=== PATIENT | female | born 1955 | race Caucasian/White ===

== ENCOUNTER 2016-11-17 08:00 | Outpatient (CLI) | payer BC, MEDICAID | END 2016-11-17 23:59 | disposition home or self-care (01) | DX: E78.2 Mixed hyperlipidemia (principal) ==

== ENCOUNTER 2017-11-16 10:53 | Outpatient (CLI) | payer BC, MEDICAID ==
[2017-11-16 13:40] LABS: HB2 TOTAL 14.5 g/dL; HEMOGLOBIN A1C 0.73 g/dL; HEMOGLOBIN A1C % 6.8 % (4.6-6.2)
== END 2017-11-16 10:54 | disposition home or self-care (01) ==
LOC: LAB.N 10:53
PROVIDERS: ATTEND Nurse Practitioner Gerontology
DX: E11.9 Type 2 diabetes mellitus without complications (principal)
CPT/HCPCS: 36415; 83036

== ENCOUNTER 2018-01-23 08:00 | Outpatient (CLI) | payer MEDICAID ==
[2018-01-23 12:56] LABS: BASOPHILS # (AUTO) 0.1 10^3/uL (0.0-0.1); BASOPHILS % (AUTO) 0.9 %; EOSINOPHILS # (AUTO) 0.5 10^3/uL (0.0-0.7); EOSINOPHILS % (AUTO) 5.7 %; HGB - HEMOGLOBIN 13.5 g/dL (12.0-16.0); LYMPHOCYTES # (AUTO) 2.4 10^3/uL (1.5-3.5); LYMPHOCYTES % (AUTO) 27.9 %; MEAN CORPUSCULAR HEMOGLOBIN 29.4 pg (27.0-31.0); MEAN CORPUSCULAR HGB CONC 33.6 g/dL (32.0-36.0); MEAN CORPUSCULAR VOLUME 87.6 fL (81.0-99.0); MEAN PLATELET VOLUME 7.5 fL (7.9-10.8); MONOCYTES # (AUTO) 0.4 10^3/uL (0.0-1.0); MONOCYTES % (AUTO) 5.3 %; NEUTROPHILS # (AUTO) 5.1 10^3/uL (1.5-6.6); NEUTROPHILS % (AUTO) 60.2 %; PLT - PLATELET COUNT 328 10^3/uL (130-450); RED BLOOD COUNT 4.58 10^6/uL (4.20-5.40); RED CELL DISTRIBUTION WIDTH 14.3 % (12.0-15.0); WHITE BLOOD COUNT 8.4 x10^3/uL (4.8-10.8)
[2018-01-23 13:02] LABS: ALBUMIN 4.1 g/dL (3.2-5.5); ALBUMIN/GLOBULIN RATIO 1.2 (1.0-2.2); ALKALINE PHOSPHATASE 106 IU/L (42-121); ALT ALANINE AMINOTRANSFERASE 24 IU/L (10-60); AST ASPARTATE AMINOTRANSFERASE 25 IU/L (10-42); BILIRUBIN,TOTAL 0.6 mg/dL (0.2-1.0); BUN - BLOOD UREA NITROGEN 21 mg/dL (6-20); CALCIUM 9.8 mg/dL (8.5-10.3); CARBON DIOXIDE - CO2 27 mmol/L (21-32); CHLORIDE 102 mmol/L (101-111); CHOL/HDL RATIO 3.5 (<4.4); CHOLESTEROL 159 mg/dL; CREATININE 0.9 mg/dL (0.4-1.0); GFR - MDRD 64 (>89); GLUCOSE 125 mg/dL (70-100); HDL CHOLESTEROL 46 mg/dL; LDL CHOLESTEROL,CALCULATED 93 mg/dL; SODIUM 138 mmol/L (135-145); TOTAL PROTEIN 7.4 g/dL (6.7-8.2); VLDL CHOLESTEROL 20 mg/dL
== END 2018-01-23 08:01 | disposition home or self-care (01) ==
LOC: LAB.N 08:00
PROVIDERS: ATTEND Nurse Practitioner Gerontology
DX: E11.9 Type 2 diabetes mellitus without complications (principal); I10 Essential (primary) hypertension; E78.2 Mixed hyperlipidemia
CPT/HCPCS: 36415; 80053; 80061; 83721; 85025

== ENCOUNTER 2019-01-27 08:00 | Outpatient (CLI) | payer MEDICAID, OTHER ==
[2019-01-27 12:43] LABS: BASOPHILS # (AUTO) 0.1 10^3/uL (0.0-0.1); BASOPHILS % (AUTO) 1.7 %; EOSINOPHILS # (AUTO) 0.6 10^3/uL (0.0-0.7); EOSINOPHILS % (AUTO) 7.6 %; HGB - HEMOGLOBIN 13.3 g/dL (12.0-16.0); LYMPHOCYTES # (AUTO) 2.2 10^3/uL (1.5-3.5); LYMPHOCYTES % (AUTO) 25.7 %; MEAN CORPUSCULAR HEMOGLOBIN 28.8 pg (27.0-31.0); MEAN CORPUSCULAR HGB CONC 33.1 g/dL (32.0-36.0); MEAN CORPUSCULAR VOLUME 86.8 fL (81.0-99.0); MEAN PLATELET VOLUME 7.3 fL (7.9-10.8); MONOCYTES # (AUTO) 0.3 10^3/uL (0.0-1.0); NEUTROPHILS # (AUTO) 5.2 10^3/uL (1.5-6.6); PLT - PLATELET COUNT 459 10^3/uL (130-450); RED BLOOD COUNT 4.62 10^6/uL (4.20-5.40); RED CELL DISTRIBUTION WIDTH 14.4 % (12.0-15.0); WHITE BLOOD COUNT 8.5 x10^3/uL (4.8-10.8)
[2019-01-27 12:51] LABS: ALBUMIN 4.1 g/dL (3.2-5.5); ALBUMIN/GLOBULIN RATIO 1.2 (1.0-2.2); ALKALINE PHOSPHATASE 120 IU/L (42-121); ALT ALANINE AMINOTRANSFERASE 30 IU/L (10-60); AST ASPARTATE AMINOTRANSFERASE 26 IU/L (10-42); BILIRUBIN,TOTAL 0.6 mg/dL (0.2-1.0); BUN - BLOOD UREA NITROGEN 19 mg/dL (6-20); CALCIUM 9.3 mg/dL (8.5-10.3); CARBON DIOXIDE - CO2 27 mmol/L (21-32); CHLORIDE 101 mmol/L (101-111); CHOL/HDL RATIO 5.1 (<4.4); CHOLESTEROL 241 mg/dL; CREATININE 0.8 mg/dL (0.4-1.0); GFR - MDRD 73 (>89); GLUCOSE 143 mg/dL (70-100); HDL CHOLESTEROL 47 mg/dL; LDL CHOLESTEROL,CALCULATED 156 mg/dL; LDL/HDL RATIO 3.3 (<4.4); SODIUM 139 mmol/L (135-145); TOTAL PROTEIN 7.5 g/dL (6.7-8.2); VLDL CHOLESTEROL 38 mg/dL
[2019-01-27 13:44] LABS: HEMOGLOBIN A1C 0.79 g/dL; HEMOGLOBIN A1C % 7.3 % (4.6-6.2)
== END 2019-01-27 23:59 | disposition home or self-care (01) ==
LOC: LAB.N 08:00
PROVIDERS: ATTEND Nurse Practitioner Gerontology
DX: E78.2 Mixed hyperlipidemia (principal); E11.9 Type 2 diabetes mellitus without complications; I10 Essential (primary) hypertension
CPT/HCPCS: 36415; 80053; 80061; 83036; 83721; 85025

== ENCOUNTER 2019-11-17 07:38 | Outpatient (CLI) | payer OTHER ==
[2019-11-17 12:53] LABS: BUN - BLOOD UREA NITROGEN 18 mg/dL (6-20); CARBON DIOXIDE - CO2 28 mmol/L (21-32); CHLORIDE 100 mmol/L (101-111); CHOL/HDL RATIO 5.8 (<4.4); CHOLESTEROL 266 mg/dL; CREATININE 0.8 mg/dL (0.4-1.0); GFR - MDRD 73 (>89); GLUCOSE 151 mg/dL (70-100); HDL CHOLESTEROL 46 mg/dL; LDL CHOLESTEROL,CALCULATED 182 mg/dL; SODIUM 136 mmol/L (135-145); VLDL CHOLESTEROL 38 mg/dL
== END 2019-11-17 23:59 | disposition home or self-care (01) ==
LOC: LAB.N 07:38
PROVIDERS: ATTEND Nurse Practitioner Gerontology
DX: I10 Essential (primary) hypertension (principal); E78.2 Mixed hyperlipidemia; E11.9 Type 2 diabetes mellitus without complications
CPT/HCPCS: 36415; 80048; 80061; 83721

== ENCOUNTER 2020-10-25 07:31 | Outpatient (CLI) | payer OTHER ==
[2020-10-25 12:12] LABS: HEMOGLOBIN A1c% 7.8 % (4.27-6.07)
[2020-10-25 12:19] LABS: ALBUMIN/GLOBULIN RATIO 1.2 (1.0-2.2); BILIRUBIN,TOTAL 0.5 mg/dL (0.2-1.0); CALCIUM 9.8 mg/dL (8.5-10.3); CREATININE 0.9 mg/dL (0.4-1.0); TOTAL PROTEIN 7.4 g/dL (6.7-8.2)
== END 2020-10-25 07:32 | disposition home or self-care (01) ==
LOC: LAB.N 07:31
PROVIDERS: ATTEND Internal Medicine
DX: E11.9 Type 2 diabetes mellitus without complications (principal)
CPT/HCPCS: 36415; 80053; 83036

== ENCOUNTER 2021-02-07 09:20 | Outpatient (CLI) | payer OTHER ==
[2021-02-07 13:42] LABS: BASOPHILS # (AUTO) 0.1 10^3/uL (0.0-0.1); BASOPHILS % (AUTO) 0.9 %; EOSINOPHILS # (AUTO) 0.5 10^3/uL (0.0-0.7); HCT - HEMATOCRIT 42.7 % (37.0-47.0); HGB - HEMOGLOBIN 13.7 g/dL (12.0-16.0); LYMPHOCYTES # (AUTO) 2.7 10^3/uL (1.5-3.5); LYMPHOCYTES % (AUTO) 28.9 %; MEAN CORPUSCULAR HEMOGLOBIN 28.5 pg (27.0-31.0); MEAN CORPUSCULAR HGB CONC 32.1 g/dL (32.0-36.0); MEAN PLATELET VOLUME 9.7 fL (7.9-10.8); MONOCYTES # (AUTO) 0.5 10^3/uL (0.0-1.0); MONOCYTES % (AUTO) 5.8 %; NEUTROPHILS # (AUTO) 5.5 10^3/uL (1.5-6.6); NEUTROPHILS % (AUTO) 59.1 %; PLT - PLATELET COUNT 390 10^3/uL (130-450); RED CELL DISTRIBUTION WIDTH 13.8 % (12.0-15.0); WHITE BLOOD COUNT 9.3 x10^3/uL (4.8-10.8)
[2021-02-07 13:50] LABS: ESTIMATED AVERAGE GLUCOSE 148 mg/dL (70-100); HEMOGLOBIN A1c% 6.8 % (4.27-6.07)
[2021-02-07 14:10] LABS: ALBUMIN 4.6 g/dL (3.2-5.5); ALBUMIN/GLOBULIN RATIO 1.4 (1.0-2.2); ALKALINE PHOSPHATASE 82 IU/L (42-121); ALT ALANINE AMINOTRANSFERASE 18 IU/L (10-60); AST ASPARTATE AMINOTRANSFERASE 17 IU/L (10-42); BILIRUBIN,TOTAL 0.6 mg/dL (0.2-1.0); BUN - BLOOD UREA NITROGEN 19 mg/dL (6-20); CALCIUM 9.9 mg/dL (8.5-10.3); CARBON DIOXIDE - CO2 27 mmol/L (21-32); CHLORIDE 100 mmol/L (101-111); CHOL/HDL RATIO 3.5 (<4.4); CHOLESTEROL 180 mg/dL; CREATININE 0.9 mg/dL (0.4-1.0); GFR - MDRD 63 (>89); GLUCOSE 147 mg/dL (70-100); HDL CHOLESTEROL 51 mg/dL; LDL CHOLESTEROL,CALCULATED 105 mg/dL; LDL/HDL RATIO 2.1 (<4.4); POTASSIUM 4.4 mmol/L (3.5-5.0); SODIUM 139 mmol/L (135-145); TOTAL PROTEIN 7.8 g/dL (6.7-8.2); TRIGLYCERIDES 120 mg/dL; VLDL CHOLESTEROL 24 mg/dL
== END 2021-02-07 09:21 | disposition home or self-care (01) ==
LOC: LAB.N 09:20
PROVIDERS: ATTEND Internal Medicine
DX: I10 Essential (primary) hypertension (principal); E11.9 Type 2 diabetes mellitus without complications
CPT/HCPCS: 36415; 80053; 80061; 83036; 83721; 85025

== ENCOUNTER 2021-02-20 10:11 | Outpatient (CLI) | payer OTHER ==
--- NOTE | 2021-02-20 11:00 | XRAY Report ---
PROCEDURE: Hip w/Pelvis 2-3V RT INDICATIONS: RIGHT HIP JOINT PAIN TECHNIQUE: AP pelvis with lateral view(s) of the bilateral hip(s). COMPARISON: None. FINDINGS: Bones: No fractures or dislocations, but there is severe hip joint degeneration bilaterally, with re modeling and erosion of the upper aspect of the femoral heads bilaterally, slightly greater on the ri ght than the left.. Pelvic ring appears intact. No suspicious bony lesions. Soft tissues: The visualized bowel gas pattern is normal. No suspicious soft tissue calcifications. IMPRESSION: The degenerative changes at the hips bilaterally appear long-standing and severe. There is remodeling of the upper third of the femoral heads, to a greater degree on the right than the left , and degenerative osteoarthritis as a primary etiology of this appearance is possible. Old avascular necrosis with secondary subsequent degenerative changes also could occur and produce this appearance . Reviewed by: Justino Mas MD on 02/20/2021 10:58 AM PDT Approved by: Justino Mas MD on 02/20/2021 10:58 AM PDT Station ID: [id number]
== END 2021-02-20 10:12 | disposition home or self-care (01) ==
LOC: DI 10:11
PROVIDERS: ATTEND Internal Medicine
DX: M25.551 Pain in right hip (principal); M16.0 Bilateral primary osteoarthritis of hip

== ENCOUNTER 2021-03-31 07:28 | Outpatient (CLI) | payer OTHER ==
[2021-03-31 11:53] LABS: BASOPHILS # (AUTO) 0.1 10^3/uL (0.0-0.1); BASOPHILS % (AUTO) 0.6 %; EOSINOPHILS # (AUTO) 0.5 10^3/uL (0.0-0.7); EOSINOPHILS % (AUTO) 5.7 %; HCT - HEMATOCRIT 43.7 % (37.0-47.0); HGB - HEMOGLOBIN 13.8 g/dL (12.0-16.0); LYMPHOCYTES # (AUTO) 2.4 10^3/uL (1.5-3.5); LYMPHOCYTES % (AUTO) 27.7 %; MEAN CORPUSCULAR HEMOGLOBIN 28.4 pg (27.0-31.0); MEAN CORPUSCULAR HGB CONC 31.6 g/dL (32.0-36.0); MEAN CORPUSCULAR VOLUME 89.9 fL (81.0-99.0); MEAN PLATELET VOLUME 9.6 fL (7.9-10.8); MONOCYTES # (AUTO) 0.5 10^3/uL (0.0-1.0); MONOCYTES % (AUTO) 5.6 %; NEUTROPHILS # (AUTO) 5.2 10^3/uL (1.5-6.6); NEUTROPHILS % (AUTO) 60.1 %; PLT - PLATELET COUNT 413 10^3/uL (130-450); RED BLOOD COUNT 4.86 10^6/uL (4.20-5.40); RED CELL DISTRIBUTION WIDTH 14.3 % (12.0-15.0); WHITE BLOOD COUNT 8.6 x10^3/uL (4.8-10.8)
[2021-03-31 12:11] LABS: ALBUMIN 4.7 g/dL (3.2-5.5); ALBUMIN/GLOBULIN RATIO 1.4 (1.0-2.2); BILIRUBIN,TOTAL 0.7 mg/dL (0.2-1.0); CREATININE 0.9 mg/dL (0.4-1.0); POTASSIUM 4.1 mmol/L (3.5-5.0)
[2021-03-31 12:28] LABS: THYROID STIMULATING HORMONE 3.69 uIU/mL (0.34-5.60)
[2021-03-31 12:38] LABS: ESTIMATED AVERAGE GLUCOSE 151 mg/dL (70-100); HEMOGLOBIN A1c% 6.9 % (4.27-6.07)
== END 2021-03-31 07:29 | disposition home or self-care (01) ==
LOC: LAB.N 07:28
PROVIDERS: ATTEND Internal Medicine
DX: I10 Essential (primary) hypertension (principal); E11.9 Type 2 diabetes mellitus without complications; E01.0 Iodine-deficiency related diffuse (endemic) goiter
CPT/HCPCS: 36415; 80053; 83036; 84443; 85025

== ENCOUNTER 2021-05-04 06:14 | Day surgery (SDC) | payer OTHER ==
[2021-05-04] MEDS ORDERED: ACETAMINOPHEN 500 MG TABLET PO ONE (06:18)
[2021-05-04] MEDS ORDERED: CELECOXIB 100 MG CAPSULE PO ONE (06:18)
[2021-05-04] MEDS ORDERED: DEXAMETHASONE 10 MG/ML VIAL ONE (06:19)
[2021-05-04] MEDS ORDERED: ceFAZolin 2 GM/50 ML 2 GM/50 ML BAG IV ONE (06:19)
[2021-05-04] MEDS ORDERED: MIDAZOLAM 2 MG/2 ML VIAL ONE (06:58)
[2021-05-04] MEDS ORDERED: fentaNYL 100 MCG/2 ML VIAL ONE (06:58)
[2021-05-04] MEDS ORDERED: VANCOMYCIN 1 GM VIAL ONE (06:59)
[2021-05-04] MEDS ORDERED: PROPOFOL 1000 MG/100 ML 1,000 MG/100 ML BOTTLE IV ONE (07:05)
[2021-05-04] MEDS ORDERED: PHENYLEPHRINE 10 MG/ML VIAL ONE (07:06)
[2021-05-04] MEDS ORDERED: SODIUM CHLORIDE FLUSH 0.9% 10 ML SYRINGE IVP PRN (07:08)
[2021-05-04] MEDS ORDERED: DOCUSATE SODIUM 100 MG CAPSULE PO PRN (07:08)
[2021-05-04] MEDS ORDERED: ONDANSETRON 4 MG/2 ML VIAL IVP PRN ×2 (07:08→07:18)
[2021-05-04] MEDS ORDERED: BUPIVACAINE 0.5% PF 10 ML VIAL ONE (07:13)
[2021-05-04] MEDS ORDERED: ePHEDrine 50 MG/ML VIAL IVP PRN (07:18)
[2021-05-04] MEDS ORDERED: MORPHINE 2 MG/ML CARPUJECT IVP PRN (07:18)
[2021-05-04] MEDS ORDERED: ATROPINE ABBOJECT 1 MG/10 ML SYRINGE IVP PRN (07:18)
[2021-05-04] MEDS ORDERED: HYDROmorphone 0.5 MG/0.5 ML SYRINGE IVP PRN (07:18)
[2021-05-04] MEDS ORDERED: fentaNYL 100 MCG/2 ML VIAL IVP PRN (07:18)
[2021-05-04] MEDS ORDERED: METOCLOPRAMIDE 10 MG/2 ML VIAL IVP PRN (07:18)
[2021-05-04] MEDS ORDERED: NALOXONE 0.4 MG/ML VIAL IVP PRN (07:18)
--- NOTE | 2021-05-04 07:18 | ANESTHESIA ---
Pre-Anesthesia VS, & Labs - Diagnosis right hip osteoarthritis - Procedure right hip total arthroplasty Vital Signs: Temp Pulse Resp BP Pulse Ox 37.2 C 87 18 140/82 H 100 05/04/21 06:30 05/04/21 06:30 05/04/21 06:30 05/04/21 06:30 05/04/21 06:30 Height: 5 ft 5 in Weight (kg): 104.8 kg Body Mass Index: 38.4 BMI Classification: Obese - NPO >8 hours - Is Patient ?: No - Lab Results Current Lab Results: Laboratory Tests 05/04/21 06:51: POC Whole Bld Glucose 112 H Lab results reviewed: Yes Home Medications and Allergies Home Medications: Ambulatory Orders Amlodipine Besylate [Norvasc] 10 mg PO DAILY 05/02/21 Calcium Carbonate [Tums (Calcium Carbonate 500mg)] 3 tab PO QPM 05/02/21 Cholecalciferol (Vitamin D3) [Vitamin D3] 1,000 unit PO DAILY 05/02/21 Cyanocobalamin (Vitamin B-12) [Vitamin B-12] 1,000 mcg PO BID 05/02/21 Ibuprofen [Motrin] 400 mg PO BID 05/02/21 Losartan Potassium [Cozaar] 100 mg PO DAILY 05/02/21 Simvastatin [Zocor] 10 mg PO QPM 05/02/21 flaxseed oiL [Flaxseed Oil] 1,000 mg PO BID 05/02/21 hydroCHLOROthiazide [Hydrodiuril] 25 mg PO DAILY 05/02/21 metFORMIN [Glucophage] 1,000 mg PO BIDWM 05/02/21 Amlodipine Besylate [Norvasc] 10 mg PO DAILY 05/02/21 Calcium Carbonate [Tums (Calcium Carbonate 500mg)] 3 tab PO QPM 05/02/21 Cholecalciferol (Vitamin D3) [Vitamin D3] 1,000 unit PO DAILY 05/02/21 Cyanocobalamin (Vitamin B-12) [Vitamin B-12] 1,000 mcg PO BID 05/02/21 Ibuprofen [Motrin] 400 mg PO BID 05/02/21 Losartan Potassium [Cozaar] 100 mg PO DAILY 05/02/21 Simvastatin [Zocor] 10 mg PO QPM 05/02/21 flaxseed oiL [Flaxseed Oil] 1,000 mg PO BID 05/02/21 hydroCHLOROthiazide [Hydrodiuril] 25 mg PO DAILY 05/02/21 metFORMIN [Glucophage] 1,000 mg PO BIDWM 05/02/21 Allergies/Adverse Reactions: Allergies Allergy/AdvReac Type Severity Reaction Status Date / Time adhesive tape Allergy Rash Verified 05/02/21 12:14 lisinopril Allergy angioedema Verified 05/02/21 12:10 sitagliptin [From Januvia] Allergy severe Verified 05/02/21 12:10 joint pain atorvastatin [From Lipitor] AdvReac muscle Verified 05/02/21 12:10 cramps Anes History & Medical History - Anesthetic History Anesthesia Complications: reports: No previous complications Family history of Anesthesia Complications: Denies Family history of Malignant Hyperthermia: Denies - Medical History Cardiovascular: reports: Hypertension, High cholesterol Gastrointestinal: reports: GERD Urinary: reports: None Musculoskeletal: reports: Osteoarthritis Endocrine/Autoimmune: reports: Type 2 diabetes Skin: reports: Eczema - Surgical History General: reports: Colonoscopy Exam General: Alert, Oriented x3, Cooperative, No acute distress Dental: WNL Mouth Openin Fingerbreadth Neck Mobility: Normal Mallampati classification: II Respiratory: Lungs clear, Normal breath sounds, No respiratory distress, No accessory muscle use Cardiovascular: Regular rate, Normal S1, Normal S2, No murmurs Plan Anesthesia Type: General (backup), Spinal, Fascia Iliaca Block Consent for Procedure(s) Verified and Reviewed: Yes Code Status: Attempt Resuscitation ASA classification: 3-Severe systemic disease Is this case an emergency?: No
[2021-05-04] MEDS ORDERED: LACTATED RINGERS 1,000 ML IV SCH (08:00)
[2021-05-04] MEDS ORDERED: ePHEDrine 50 MG/ML VIAL IVP ONE (08:04)
[2021-05-04] MEDS ORDERED: TRANEXAMIC ACID 1,000 MG/10 ML VIAL ONE ×2 (08:13→10:32)
[2021-05-04] MEDS ORDERED: BUPIVACAINE 0.25% PF 30 ML VIAL ONE (08:23)
[2021-05-04] MEDS ORDERED: VANCOMYCIN 1 GM VIAL MC ONE ×2 (08:30→10:00)
[2021-05-04] MEDS ORDERED: BUPIVACAINE 0.25% PF 30 ML VIAL SUBQ ONE ×3 (08:30→10:43)
[2021-05-04] MEDS ORDERED: PROPOFOL 200 MG/20 ML VIAL IVP ONE ×2 (09:40→10:42)
[2021-05-04] MEDS ORDERED: ROPIVACAINE 0.5% PF 20 ML AMPULE ONE (10:02)
--- NOTE | 2021-05-04 10:54 | OPERATIVE REPORT ---
Operative Report - General Procedure Date: 05/04/21 Planned Procedure: Right total hip replacement Pre-Op Diagnosis: Severe osteoarthritis right hip with flexion contracture Procedure Performed: Right total hip replacement with Barrera [employer] Nephew total hip system: #7 high offset anthology, 36 mm Oxinium femoral head, +12 mm, 52 mm press-fit acetabular component with neutral polyethylene acetabular liner Post Op Diagnosis: Same as preop diagnosis - Procedure Note Primary Surgeon: Earle Daniels MD Secondary Surgeon: Vinicius LEONE Anesthesia Provider: John Lynch CRNA Anesthesia Technique: Spinal Estimated Blood Loss (mL): 150 Indications: This is a 65-year-old woman with severe bilateral hip osteoarthritis with bilateral hip flexion contractures leading to marked gait difficulties. She has history of obesity and diabetes. She had approximately 30 to 40 degree flexion contractures bilaterally, stooped gait, marked pain and limited motion to both hips. X-ray showed advanced changes to both hips with complete loss of joint space. There was marked osteophytes about the acetabulum, some superior erosion of the acetabulum and some superior subluxation of the femoral head right hip Findings: Complete loss of articular cartilage to both femur and acetabulum. There was deformity of both femoral head and acetabulum. There was marked osteophytes about the acetabulum circumferentially. Complications: None - Other Other Information/Narrative: After satisfactory spinal anesthesia had been achieved, the patient was placed in a lateral decubitus position with the right hip facing superiorly. She was secured in the lateral decubitus position using a pegboard with 2 post securing the torso and 2 posts securing the pelvis. The right hip and right lower extremity were prepped and draped in a sterile manner in the usual fashion. A timeout procedure was performed by the entire operating room team and all were in agreement. A longitudinal incision was made about the lateral right hip beginning at the vastus lateralis ridge of the proximal femur and extending it proximally approximately 3 fingerbreadths above the trochanter. The sub cutaneous tissue and fascia yasmeen were split in line with the incision. The anterior one third of the gluteus medius was incised at the myotendinous junction. The gluteus medius was retracted medially. The hip capsule was exposed and was split in a T-shaped fashion. Part of the anterior hip capsule was excised. The femoral head was dislocated with flexion, adduction and external rotation. An osteotomy was done to the femoral neck using a osteotomy guide. Retractors were placed behind the femoral neck to protect the soft tissues from the oscillating saw. The proximal femur was retracted. 2 acetabular retractors were placed one anteriorly directly against bone to reduce any soft tissue impingement to femoral nerve. The second retractor was placed more posteriorly directly against bone and preventing any impingement against sciatic nerve. The acetabulum was prepared with a large curette. Medialization of the acetabulum was performed with a small acetabular reamer and then widening was done up to a 53 mm reamer the final reamers were placed in approximately 20 degrees anteversion and 45 degrees of abduction. A trial acetabular component was inserted, 52 mm and this fit well. A permanent 52 mm R3 acetabular 3-hole component was then impacted in 40 degrees of abduction and approximately 20 degrees of anteversion. This had good fixation to push pull and rotation. The stability of the acetabular cup was very good. A trial acetabular liner was inserted into the cup. The femoral canal was opened with a box osteotome, starting reamer and then a short broach. Broaching was carried out to a #7. Calcar reaming was performed. Good fit and stability to the #4 stem was achieved. Trial reduction was performed. Hip motion was very good and the hip was stable to dislocation maneuvers. The trial components were removed. A permanent acetabular liner was impacted into the acetabular cup. The #7 Anthology femoral stem was impacted and fully seated. The femoral head was impacted on the femoral trunnion. There was good stability to push pull and rotation. A 36 mm + 12head with high offset was impacted on the trunnion. The hip was reduced, had good leg length tension and good stability with dislocation maneuvers. 3-minute lavage with dilute Betadine was performed. Vancomycin powder, 2 g was added prior to deep closure. The hip abductors were repaired at the myotendinous junction with #1 Stratofix. The fascia yasmeen was closed with #1 stratofix. The subcutaneous tissue was closed with 2-0 stratofix. The skin was closed with a 3-0 Monocryl subcuticular closure and Dermabond. He tolerated the procedure well. A physician assistant hall director was utilized during the procedure to provide retraction and protection of neurovascular structures as well as to facilitate dislocation and reduction of the hip joint.The acetabulum fit very well, press-fit without need for screw fixation. There were large osteophytes about the acetabulum that had to be removed with an osteotome. There was some tendency for dislocation of the hip with external rotation and adduction because of impingement posteriorly. This was markedly improved using a longer neck length, high offset and removing the posterior acetabular osteophyte. The hip had good leg length tension and good stability after these changes were made.
[2021-05-04] MEDS ORDERED: LACTATED RINGERS 1,000 ML IV ONE ×2 (11:14→12:00)
[2021-05-04] MEDS ORDERED: LORazepam 2 MG/ML VIAL ONE (11:25)
[2021-05-04] MEDS ORDERED: LORazepam 2 MG/ML VIAL IVP ONE (12:00)
--- NOTE | 2021-05-04 12:15 | XRAY Report ---
PROCEDURE: right total hip arthroplasty. INDICATIONS: POSTOP RIGHT TOTAL HIP TECHNIQUE: Frontal single view(s) of the pelvis acquired. COMPARISON: Preoperative plain film pelvis with hip/ reviewed.. FINDINGS: Bones: No fractures or dislocations. Normal alignment after right total hip arthroplasty. No suspic ious bony lesions. Soft tissues: Visualized bowel gas pattern is normal. No suspicious soft tissue calcifications. IMPRESSION: Normal alignment established after right total hip arthroplasty. Reviewed by: Justino Mas MD on 05/04/2021 12:13 PM PDT Approved by: Justino Mas MD on 05/04/2021 12:13 PM PDT Station ID: [id number]
[2021-05-04] MEDS: CELECOXIB 100 MG CAPSULE PO SCH ×2 (12:23→20:11)
[2021-05-04] MEDS: NS W/20 MEQ KCL 1,000 ML IV SCH ×2 (12:30→21:46)
[2021-05-04] MEDS: SODIUM CHLORIDE FLUSH 0.9% 10 ML SYRINGE IVP SCH ×2 (12:30→17:08)
[2021-05-04] MEDS: ACETAMINOPHEN 500 MG TABLET PO SCH ×2 (12:33→17:08)
[2021-05-04] MEDS: ASPIRIN EC 81 MG TABLET PO SCH ×2 (12:33→20:11)
[2021-05-04] MEDS: ethyl alcohoL 62% SWAB AMPULE NAS SCH ×2 (12:34→20:11)
--- NOTE | 2021-05-04 13:29 | ANESTHESIA POST OP EVALUATION ---
Anesthesia Post Eval - Post Anesthesia Eval Vitals: Last Vital Signs Temp 36.7 C 05/04/21 12:58 Pulse 96 05/04/21 12:58 Resp 18 05/04/21 12:58 BP 132/65 H 05/04/21 12:58 Pulse Ox 94 05/04/21 12:58 CV Function Including HR & BP: Stable Pain Control: Satisfactory Nausea & Vomiting: Negative Mental Status: Baseline Respiratory Status: Airway Patent Hydration Status: Satisfactory Anesthesia Complications: None
--- NOTE | 2021-05-04 13:33 | CONSULTATION NOTE ---
Referring Provider Name of Referring Provider:: Dr. Earle Daniels Consult Date: 05/04/21 Chief Complaint - Chief Complaint Chief Complaint: requested by DR Daniels to consult on medical management post R THR History of Present Illness - Admitted From Admitted From:: [facility] - History Obtained From Records Reviewed: records History obtained from: patient and records - History of Present Illness HPI Comment/Other: Requested by Dr Daniels to consult on Ms Nguyen post R total hp replacment today She has had sevvere bilateral hip osteoarthritis, and documented hip flexion contractures bilaterally which affected gait severely. 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 2015 since daughter/ stationed here with grandkids. She is Day 0 s/p R total hip for osteoarthritis and contractures. EBL 150 Operatiave report notes no complications. Post anaestehsia note by ELIDIA Barrera w/ VS 36.7, HR 96, RR 18, 132/65, Sa02 94% PMH; - obesity BMI 38 -DM Type 2 Patient thinks last A1C ~ 6.8 - on metformin 1000 bid, and simvastatin 10 mg daily -Hypertension; on losartan 100 daily, amlodipine 10 daily , HCTZ ; held preop - bilat hip OA ; takes ibupfofen 400 q am, 600 q pm for pain - Restless leg syndrome B12 1000 bid (she found this recommended online) Denies CAD, pulmonary disease, other orthopedic, no renal disease She is fairly active, goes to the gym in [place] 3x / week, has grandkids she is involved with. No SOB or chest pain that limits activities. Exceeds 4 METS w/ daily activity. History - Past Medical History Cardiovascular: reports: Hypertension, High cholesterol Respiratory: reports: Asthma Endocrine/Autoimmune: reports: Type 2 diabetes (reports A1C ~ 6.8m metformin and diet control) : reports: None HEENT: reports: Chronic vision loss Psych: reports: None Musculoskeletal: reports: Osteoarthritis, Other (mild restless leg syndrome) Derm: reports: Eczema MRSA Hx?: No - Past Surgical History General: reports: Colonoscopy - Family & Social History Living arrangement: At home Living Situation: With spouse/s.o. Social History Notes: used to work in a [employer] [place] in [place] in [place], lives w/ , moved to [facility] 2016 as daughter was here / with grand kids on [employer] [place] - Substance History Use: Uses substance without health or social issues: Alcohol (occasional on holidays, no tobacco) Meds/Allgy - Home Medications Home Medications: Ambulatory Orders Medication Instructions Recorded Confirmed Amlodipine Besylate [Norvasc] 10 mg PO DAILY 05/02/21 05/02/21 Calcium Carbonate [Tums (Calcium 3 tab PO QPM 05/02/21 05/02/21 Carbonate 500mg)] Cholecalciferol (Vitamin D3) 1,000 unit PO DAILY 05/02/21 05/02/21 [Vitamin D3] Cyanocobalamin (Vitamin B-12) 1,000 mcg PO BID 05/02/21 05/02/21 [Vitamin B-12] Ibuprofen [Motrin] 400 mg PO BID 05/02/21 05/02/21 Losartan Potassium [Cozaar] 100 mg PO DAILY 05/02/21 05/02/21 Simvastatin [Zocor] 10 mg PO QPM 05/02/21 05/02/21 flaxseed oiL [Flaxseed Oil] 1,000 mg PO BID 05/02/21 05/02/21 hydroCHLOROthiazide [Hydrodiuril] 25 mg PO DAILY 05/02/21 05/02/21 metFORMIN [Glucophage] 1,000 mg PO BIDWM 05/02/21 05/02/21 Celecoxib [Celebrex] 200 mg PO DAILY #50 cap 05/05/21 - Allergies Allergies/Adverse Reactions: Allergies Allergy/AdvReac Type Severity Reaction Status Date / Time adhesive tape Allergy Rash Verified 05/02/21 12:14 lisinopril Allergy angioedema Verified 05/02/21 12:10 sitagliptin [From Januvia] Allergy severe Verified 05/02/21 12:10 joint pain atorvastatin [From Lipitor] AdvReac muscle Verified 05/02/21 12:10 cramps Review of Systems - Constitutional Constitutional: reports: Weight loss (intentional ~ 30 lbs (has helped her sugar)). denies: Fever, Chills - Eyes Eyes: denies: Vision loss, Dipolpia - Cardiovascular Cariovascular: denies: Palpitations, Chest pain, Edema - Respiratory Respiratory: denies: Cough, Wheezing, Orthopnea, SOB at rest, SOB with exertion - Gastrointestinal Gastrointestinal: denies: Constipation, Diarrhea, Change in bowel habits, Black stools, Nausea, Vomiting - Genitourinary Genitourinary: denies: Dysuria, Frequency, Urgency - Musculoskeletal Musculoskeletal: reports: Other (as per HPi) - Neurological Neurological: denies: Focal weakness, Headache - Psychiatric Psychiatric: reports: Other (no mood issues). denies: Depression - Endocrine Endocrine: denies: Polyuria, Polydypsia, Polyphagia - Hematologic/Lymphatic Hematologic/Lymphatic: denies: Anemia, Blood clots, Lymphadenopathy Exam - Vital Signs Reviewed Vital Signs: Yes Vital Signs: Vital Signs x48h Temp Pulse Resp BP Pulse Ox 05/04/21 12:58 36.7 C 96 18 132/65 H 94 05/04/21 12:43 36.7 C 89 18 129/93 H 96 05/04/21 12:30 35.6 C L 87 17 113/66 94 05/04/21 12:16 85 18 130/68 96 05/04/21 11:55 36.5 C 81 16 133/79 H 100 05/04/21 11:50 36.5 C 84 18 113/65 100 05/04/21 11:45 36.6 C 84 19 124/69 100 05/04/21 11:40 36.6 C 84 20 125/58 L 100 05/04/21 11:35 36.6 C 81 19 108/71 100 05/04/21 11:30 36.6 C 84 17 127/76 100 05/04/21 11:25 36.5 C 87 17 123/75 99 05/04/21 11:20 36.4 C L 95 18 138/82 H 100 05/04/21 11:15 36.6 C 99 20 121/70 99 05/04/21 06:30 37.2 C 87 18 140/82 H 100 - Physical Exam General Appearance: positive: No acute distress, Alert, Other (Pleasant heavy set woman looks younger than age of 65 lying in bed looking completely comfortable. alert, animated , provides good detail of health history) Eyes Bilateral: positive: Normal inspection, PERRL, EOMI ENT: positive: ENT inspection nml, Other (own teeth) Respiratory: positive: Chest non-tender, No respiratory distress, Breath sounds nml (auscultated anteriorly currently, breathing comfortably flat on RA, 98% sat) Cardiovascular: positive: Regular rate & rhythm, No murmur Abdomen: positive: Nml bowel sounds, No distention, Other (obese abdomen) Skin: positive: Warm, Dry. negative: Cyanosis Extremities: positive: Other (sCD's on bilaterally). negative: Pedal edema Neurologic/Psychiatric: positive: Oriented x3, Mood/affect nml Conclusion/Plan - Problem List (1) Status post total hip replacement, right Conclusion/Plan: Primary management with dressing change, mobiility orders, prophylactic ancef VTE prophylaxis (81 mg bid asa ), pain control per orthopedic surgery (2) Diabetes mellitus Conclusion/Plan: Well controlled DM on metformn Hold metformin in hospital can resume on d/c home, continue diet control (3) Obesity (BMI 30-39.9) Conclusion/Plan: with complication of bilateral osteoarthritis of hips (likely at least partly related to obesity continue efforts to lose weight as she has) (4) Hypertension Conclusion/Plan: controlled, no sequelae is on losartan, amlodipine at home which she did take this am Will continue tomorrow most likley if no hypotension will sukhjinder hold HCTZ til d/c (was held preop as well) (5) Hyperlipidemia Conclusion/Plan: on sivastatin at home; lovastatin here controlled, contiue - Lab Results Lab results reviewed: Yes
[2021-05-04] MEDS ORDERED: CEFAZOLIN SODIUM IN 0.9 % NACL 2 GM/100 ML BAG IV SCH (14:00)
[2021-05-04] MEDS ORDERED: ceFAZolin 2 GM in SODIUM CHLORIDE 0.9% 100ML 100 ML IV SCH (14:00)
[2021-05-04] MEDS: ceFAZolin 2 GM/50 ML 2 GM/50 ML BAG IV SCH ×2 (14:25→21:03)
[2021-05-04] MEDS: oxyCODONE 5 MG TABLET PO PRN ×2 (15:46→21:46)
[2021-05-04] MEDS: HYDROmorphone 1 MG/ML CARPUJECT IVP PRN ×2 (15:47→20:10)
[2021-05-04] MEDS: INSULIN ASPART 300 UNIT/3 ML PEN SUBQ SCH ×2 (17:08→21:06)
[2021-05-04] MEDS ORDERED: PRAVASTATIN 10 MG TABLET PO SCH (21:00)
[2021-05-05] MEDS: SODIUM CHLORIDE FLUSH 0.9% 10 ML SYRINGE IVP SCH ×2 (00:45→02:57)
[2021-05-05] MEDS: ACETAMINOPHEN 500 MG TABLET PO SCH ×2 (00:49→06:50)
[2021-05-05] MEDS: HYDROmorphone 1 MG/ML CARPUJECT IVP PRN (02:56)
[2021-05-05] MEDS: NS W/20 MEQ KCL 1,000 ML IV SCH (06:53)
--- NOTE | 2021-05-05 07:49 | PROVIDER PROGRESS NOTE ---
Subjective - General Procedure Date: 05/04/21 Post Op Days: 1 - Review of Systems Wound/Incisions: positive: Dressing dry and intact General: negative: Fever, Chills Cardiovascular: positive: No symptoms Gastrointestinal: positive: No symptoms. negative: Nausea, Vomiting Musculoskeletal: positive: Joint pain Skin: positive: No symptoms - Other Other Information/Narrative: Patient is a 65-year-old female with bilateral hip osteoarthritis who is postop day 1 right total hip arthroplasty performed by Dr Earle Daniels at [facility] on 05/04/2021. Patient's history includes DM 2 on Metformin, hypertension on HCTZ, amlodipine and losartan. Patient shows no signs or symptoms of infection. Her pain has been well controlled. Patient has been up to chair and up to commode. Objective - Patient Data Vital Signs: Vital Signs x48h Temp Pulse Resp BP Pulse Ox 05/05/21 07:41 37.6 C 88 18 114/59 L 98 05/05/21 04:59 36.8 C 89 19 118/57 L 97 05/04/21 23:56 36.9 C 97 21 124/60 97 Weight: Weight 05/03/21 05/04/21 05/05/21 23:59 23:59 23:59 Weight (kg) 104.8 kg Intake & Output: Intake and Output Totals x24h 05/03/21 05/04/21 05/05/21 23:59 23:59 23:59 Intake Total 2088.334 1361.667 Output Total 1050 575 Balance 1038.334 786.667 - Lab Results Other Lab Results: Lab Results x24hrs 05/05/21 05/04/21 05/04/21 Range/Units 07:33 20:59 16:41 POC Whole Bld Glucose 171 H 230 H 223 H (70 - 100) mg/dL 05/04/21 Range/Units 14:12 POC Whole Bld Glucose 202 H (70 - 100) mg/dL - Imaging Results Radiology Imaging: positive: EMP read indepedently (I have independently visualized radiographs of the AP pelvis taken postoperatively on 05/04/2021 that show no acute fractures dislocations with good anatomical alignment of expected appearance right BERNA, No apparent hardware loosening.) - Current Medications Current Medications: Current Medications Generic Name Dose Route Start Last Admin Trade Name Freq PRN Reason Stop Dose Admin Acetaminophen 1,000 mg 05/04/21 12:00 05/05/21 06:50 Acetaminophen 500 Mg Tablet PO 1,000 mg Q6HR KEILY Administration Alcohol 1 amp 05/04/21 09:00 05/04/21 20:11 Ethyl Alcohol 62% Swab Ampule HO 1 amp BID KEILY Administration Aspirin 81 mg 05/04/21 09:00 05/04/21 20:11 Aspirin Ec 81 Mg Tablet PO 81 mg BID KEILY Administration Celecoxib 200 mg 05/04/21 09:00 05/04/21 20:11 Celecoxib 100 Mg Capsule PO 200 mg BID KEILY Administration Hydromorphone HCl 1 mg 05/04/21 07:08 05/05/21 02:56 Hydromorphone 1 Mg/Ml Carpuject IVP 1 mg Q2HR PRN Administration Breakthrough Pain Potassium Chloride/Sodium Chloride 1,000 mls @ 100 mls/hr 05/04/21 08:00 05/05/21 06:53 Normal Saline 0.9% W/20 Meq Kcl IV 100 mls/hr .Q10H KEILY Administration Oxycodone HCl 5 mg 05/04/21 07:08 05/04/21 21:46 Oxycodone 5 Mg Tablet PO 5 mg Q6HR PRN Administration PAIN Pravastatin Sodium 10 mg 05/04/21 21:00 05/04/21 20:11 Pravastatin 10 Mg Tablet PO 10 mg QPM KEILY Administration Sodium Chloride 10 ml 05/04/21 09:00 05/05/21 02:57 Sodium Chloride Flush 0.9% 10 Ml Syringe IVP 10 ml 0100,0900,1700 KEILY Administration - Physical Exam General Appearance: positive: No acute distress Respiratory: positive: No respiratory distress Skin: positive: Color nml, No rash, Warm, Dry Extremities: positive: Other (Right hip and groin pain) Neurologic/Psychiatric: positive: Oriented x3 ABX Reporting Has patient been on IV antibiotics over the past 48 hours?: Yes Impression/Plan - Problem List Problem List: Patient is a 65-year-old female with a history including bilateral hip osteoarthritis DM 2, hypertension who is postop day [address] Earle Daniels at [facility] on 05/04/2021. Patient shows no signs or symptoms of infection, pain well controlled, is up to Chair and commode. Patient is weightbearing as tolerated in front wheeled walker. Providing successful completion of physical therapy sessions today patient can go home
--- NOTE | 2021-05-05 07:57 | Discharge Plan ---
Discharge Plan Problem Reviewed?: Yes Disposition: Home, Self Care Condition: Good Diet: Diabetic Activity Restrictions: Activity as Tolerated Shower Restrictions: Yes (Do not shower until initial postop visit) Driving Restrictions: Yes (Do not operate a motor vehicle until cleared by surgeon) Assistance Devices: Walker Weight Bearing: Other (As tolerated) Plan of Treatment: You have had a Right hip replacement or total hip arthroplasty for osteoarthritis. Your medications for pain management will include a new p rescription for Celebrex 200 mg once daily for inflammation sent to your pharmacy. Also take 650 mg of Tylenol every 4 hours up to 5 times in a 24-hour period. Take scheduled Tramadol 50 mg every 6 hours. Take oxycodone 5 mg Every 4-6 hours as needed for breakthrough pain. Take aspirin 81 mg 1 tablet in the a.m., 1 tablet in the p.m. for blood clot prevention. You can walk using a front wheeled walker as much as you can tolerate. The more walking you can do will accelerate proper bone healing after surgery. No Smoking: If you smoke, Please STOP! Call for help. Follow-up with: Chong Latham MD [Primary Care Provider] -
[2021-05-05] MEDS ORDERED: INSULIN ASPART 300 UNIT/3 ML PEN SUBQ SCH (08:00)
[2021-05-05] MEDS: CELECOXIB 100 MG CAPSULE PO SCH (08:04)
[2021-05-05] MEDS: ASPIRIN EC 81 MG TABLET PO SCH (08:04)
[2021-05-05] MEDS: ethyl alcohoL 62% SWAB AMPULE NAS SCH (08:05)
[2021-05-05] MEDS ORDERED: LOSARTAN 50 MG TABLET PO SCH (09:00)
[2021-05-05] MEDS: oxyCODONE 5 MG TABLET PO PRN (10:03)
[2021-05-05 11:22] VITALS: BP 110/57
== END 2021-05-05 11:30 | disposition home or self-care (01) ==
LOC: SDS 06:14 → MS2 12:07 → SDS 05-05 11:30
PROVIDERS: ATTEND Orthopaedic Surgery
PROC: 0SR902Z Replacement of Right Hip Joint with Metal on Polyethylene Synthetic Substitute, Open Approach (ICD-10-PCS; principal; 2021-05-04 07:30)
DX: M16.11 Unilateral primary osteoarthritis, right hip (principal); E66.9 Obesity, unspecified; Z68.38 Body mass index [BMI] 38.0-38.9, adult; I10 Essential (primary) hypertension; E78.00 Pure hypercholesterolemia, unspecified; E11.9 Type 2 diabetes mellitus without complications; Z79.84 Long term (current) use of oral hypoglycemic drugs; Z79.899 Other long term (current) drug therapy
CPT/HCPCS: 27130; 72170; 97116; 97161; 97165; 97530; A9270; C1713; C1776; J0690; J1170; J2060; J3370; J7120

== ENCOUNTER 2021-06-27 11:00 | Outpatient (CLI) | payer OTHER ==
--- NOTE | 2021-06-27 12:24 | XRAY Report ---
PROCEDURE: Hip w/Pelvis 2-3V RT INDICATIONS: HX OF RIGHT HIP REPLACEMENT, POSTOP CARE TECHNIQUE: AP pelvis with lateral view(s) of the right hip(s). COMPARISON: May 04, 2021 FINDINGS: BONES/JOINTS: No acute, displaced fracture. A right hip arthroplasty is again demonstrated without ev idence of hardware compromise. Advanced degenerative changes of the left hip with joint space loss, o steophytosis, remodeling, and sclerosis of the opposing articular surfaces. No widening of the pubic symphysis. The sacroiliac joints are symmetric. The femoral heads are normal ly seated within the acetabulum. SOFT TISSUES: No focal abnormality. IMPRESSION: 1.No significant abnormality. Reviewed by: Jeffery Plasencia MD on 06/27/2021 12:22 PM PDT Approved by: Jeffery Plasencia MD on 06/27/2021 12:22 PM PDT Station ID: [id number]
== END 2021-06-27 23:59 ==
LOC: DI.N 11:00
PROVIDERS: ATTEND Physician Assistant
DX: Z96.641 Presence of right artificial hip joint (principal)

== ENCOUNTER 2021-07-25 07:53 | Outpatient (CLI) | payer OTHER ==
[2021-07-25 12:21] LABS: ALBUMIN 4.2 g/dL (3.2-5.5); ALBUMIN/GLOBULIN RATIO 1.3 (1.0-2.2); BILIRUBIN,TOTAL 0.5 mg/dL (0.2-1.0); CALCIUM 10.1 mg/dL (8.5-10.3); CREATININE 0.9 mg/dL (0.4-1.0); TOTAL PROTEIN 7.4 g/dL (6.7-8.2)
[2021-07-25 12:50] LABS: ESTIMATED AVERAGE GLUCOSE 134 mg/dL (70-100); HEMOGLOBIN A1c% 6.3 % (4.27-6.07)
== END 2021-07-25 07:54 | disposition home or self-care (01) ==
LOC: LAB.N 07:53
PROVIDERS: ATTEND Internal Medicine
DX: E11.9 Type 2 diabetes mellitus without complications (principal)
CPT/HCPCS: 36415; 80053; 83036

== ENCOUNTER 2021-11-22 08:00 | Outpatient (CLI) | payer OTHER ==
--- NOTE | 2021-11-23 07:48 | XRAY Report ---
PROCEDURE: Hip 2 View LT INDICATIONS: HIP PAIN TECHNIQUE: 2 views of the hip were acquired. COMPARISON: None FINDINGS: Bones: No fractures or dislocations. No suspicious bony lesions. The visualized pelvic ring appear s intact. End-stage arthritic change of the left hip with symmetric joint space obliteration. Soft tissues: No suspicious soft tissue calcifications or masses. Incidental note made of the presen ce of calcified uterine fibroids. IMPRESSION: End-stage arthritic change of the left hip. Reviewed by: Juancarlos Flores MD on 11/23/2021 7:47 AM PDT Approved by: Juancarlos Flores MD on 11/23/2021 7:47 AM PDT Station ID: [id number]
== END 2021-11-22 23:59 ==
LOC: DI.WOS 08:00
PROVIDERS: ATTEND Orthopaedic Surgery
DX: M16.12 Unilateral primary osteoarthritis, left hip (principal)

== ENCOUNTER 2021-12-22 12:32 | Outpatient (CLI) | payer OTHER ==
[2021-12-22 18:18] LABS: BASOPHILS # (AUTO) 0.1 10^3/uL (0.0-0.1); EOSINOPHILS # (AUTO) 0.5 10^3/uL (0.0-0.7); EOSINOPHILS % (AUTO) 5.4 %; HCT - HEMATOCRIT 39.7 % (37.0-47.0); HGB - HEMOGLOBIN 12.9 g/dL (12.0-16.0); LYMPHOCYTES # (AUTO) 2.7 10^3/uL (1.5-3.5); LYMPHOCYTES % (AUTO) 30.2 %; MEAN CORPUSCULAR HEMOGLOBIN 28.3 pg (27.0-31.0); MEAN CORPUSCULAR HGB CONC 32.5 g/dL (32.0-36.0); MEAN CORPUSCULAR VOLUME 87.1 fL (81.0-99.0); MEAN PLATELET VOLUME 9.7 fL (7.9-10.8); MONOCYTES # (AUTO) 0.5 10^3/uL (0.0-1.0); MONOCYTES % (AUTO) 5.6 %; NEUTROPHILS # (AUTO) 5.1 10^3/uL (1.5-6.6); NEUTROPHILS % (AUTO) 57.6 %; PLT - PLATELET COUNT 400 10^3/uL (130-450); RED BLOOD COUNT 4.56 10^6/uL (4.20-5.40); RED CELL DISTRIBUTION WIDTH 14.5 % (12.0-15.0); WHITE BLOOD COUNT 8.9 x10^3/uL (4.8-10.8)
[2021-12-22 18:37] LABS: ALBUMIN 4.5 g/dL (3.2-5.5); ALBUMIN/GLOBULIN RATIO 1.4 (1.0-2.2); ALKALINE PHOSPHATASE 86 IU/L (42-121); ALT ALANINE AMINOTRANSFERASE 15 IU/L (10-60); AST ASPARTATE AMINOTRANSFERASE 17 IU/L (10-42); BILIRUBIN,TOTAL 0.5 mg/dL (0.2-1.0); BUN - BLOOD UREA NITROGEN 21 mg/dL (6-20); CALCIUM 9.8 mg/dL (8.5-10.3); CARBON DIOXIDE - CO2 28 mmol/L (21-32); CHLORIDE 101 mmol/L (101-111); CHOL/HDL RATIO 3.3 (<4.4); CHOLESTEROL 184 mg/dL; GFR - MDRD 56 (>89); GLUCOSE 113 mg/dL (70-100); HDL CHOLESTEROL 55 mg/dL; LDL CHOLESTEROL,CALCULATED 109 mg/dL; SODIUM 138 mmol/L (135-145); TOTAL PROTEIN 7.8 g/dL (6.7-8.2); TRIGLYCERIDES 102 mg/dL; VLDL CHOLESTEROL 20 mg/dL
== END 2021-12-22 12:33 | disposition home or self-care (01) ==
LOC: LAB.N 12:32
PROVIDERS: ATTEND Family Medicine
DX: E11.9 Type 2 diabetes mellitus without complications (principal)
CPT/HCPCS: 36415; 80053; 80061; 81599; 83036; 83721; 85025

== ENCOUNTER 2021-12-28 06:57 | Day surgery (SDC) | payer OTHER ==
[~2021-12-28 06:57] MED LIST: ACETAMINOPHEN 500 MG TABLET PO ONE; CEFAZOLIN SODIUM IN 0.9 % NACL 2 GM/50 ML BAG IV ONE; CELECOXIB 100 MG CAPSULE PO ONE
[2021-12-28] MEDS ORDERED: BUPIVACAINE 0.25% PF 30 ML VIAL ONE (07:01)
[2021-12-28] MEDS ORDERED: VANCOMYCIN 1 GM VIAL ONE (07:01)
[2021-12-28] MEDS ORDERED: LACTATED RINGERS 1,000 ML IV ONE (07:18)
[2021-12-28] MEDS ORDERED: KETAMINE 500 MG/10 ML VIAL ONE (07:22)
[2021-12-28] MEDS ORDERED: MIDAZOLAM 2 MG/2 ML VIAL ONE (07:28)
[2021-12-28] MEDS ORDERED: ONDANSETRON 4 MG/2 ML VIAL IVP PRN ×2 (07:31→07:37)
[2021-12-28] MEDS ORDERED: DOCUSATE SODIUM 100 MG CAPSULE PO PRN (07:31)
[2021-12-28] MEDS ORDERED: SODIUM CHLORIDE FLUSH 0.9% 10 ML SYRINGE IVP PRN (07:31)
[2021-12-28] MEDS ORDERED: fentaNYL 100 MCG/2 ML VIAL IVP PRN ×2 (07:31→07:37)
[2021-12-28] MEDS ORDERED: NALOXONE 0.4 MG/ML VIAL IVP PRN (07:37)
[2021-12-28] MEDS ORDERED: METOCLOPRAMIDE 10 MG/2 ML VIAL IVP PRN (07:37)
[2021-12-28] MEDS ORDERED: HYDROmorphone 0.5 MG/0.5 ML SYRINGE IVP PRN (07:37)
[2021-12-28] MEDS ORDERED: ATROPINE ABBOJECT 1 MG/10 ML SYRINGE IVP PRN (07:37)
[2021-12-28] MEDS ORDERED: ePHEDrine 50 MG/ML VIAL IVP PRN (07:37)
[2021-12-28] MEDS ORDERED: MORPHINE 2 MG/ML CARPUJECT IVP PRN (07:37)
--- NOTE | 2021-12-28 07:37 | ANESTHESIA ---
Pre-Anesthesia VS, & Labs - Diagnosis L hip OA - Procedure L total hip arthroplasty Vital Signs: Temp Pulse Resp BP Pulse Ox 36.6 C 82 18 148/93 H 100 12/28/21 07:19 12/28/21 07:19 12/28/21 07:19 12/28/21 07:19 12/28/21 07:19 Height: 5 ft 7 in Weight (kg): 99.5 kg Body Mass Index: 34.3 BMI Classification: Obese - NPO >8 hours Last Fluid Intake: sips h20 with am meds - Is Patient ?: No - Lab Results Lab results reviewed: Yes Home Medications and Allergies Home Medications: Ambulatory Orders Zinc Gluconate [Zinc] 50 mg PO DAILY 12/20/21 Amlodipine Besylate [Norvasc] 10 mg PO DAILY 05/02/21 Calcium Carbonate [Tums (Calcium Carbonate 500mg)] 3 tab PO QPM 05/02/21 Cholecalciferol (Vitamin D3) [Vitamin D3] 1,000 unit PO DAILY 05/02/21 Cyanocobalamin (Vitamin B-12) [Vitamin B-12] 1,000 mcg PO BID 05/02/21 Ibuprofen [Motrin] 400 mg PO BID 05/02/21 Losartan Potassium [Cozaar] 100 mg PO DAILY 05/02/21 Simvastatin [Zocor] 10 mg PO QPM 05/02/21 hydroCHLOROthiazide [Hydrodiuril] 25 mg PO DAILY 05/02/21 metFORMIN [Glucophage] 1,000 mg PO BIDWM 05/02/21 Zinc Gluconate [Zinc] 50 mg PO DAILY 12/20/21 Allergies/Adverse Reactions: Allergies Allergy/AdvReac Type Severity Reaction Status Date / Time adhesive tape Allergy Rash Verified 12/28/21 06:25 lisinopril Allergy angioedema Verified 12/28/21 06:25 sitagliptin [From Januvia] Allergy severe Verified 12/28/21 06:25 joint pain atorvastatin [From Lipitor] AdvReac muscle Verified 12/28/21 06:25 cramps Anes History & Medical History - Anesthetic History Anesthesia Complications: reports: No previous complications Family history of Anesthesia Complications: Denies Family history of Malignant Hyperthermia: Denies - Medical History Cardiovascular: reports: Hypertension, High cholesterol Pulmonary: reports: Asthma Gastrointestinal: reports: Colon polyps Urinary: reports: None Musculoskeletal: reports: Osteoarthritis Endocrine/Autoimmune: reports: Type 2 diabetes Skin: reports: Eczema History of Cancer?: No - Surgical History General: reports: Colonoscopy Orthopedic: reports: Hip replacement Exam General: Alert, Oriented x3, Cooperative Dental: WNL Mouth Openin Fingerbreadth Neck Mobility: Normal Mallampati classification: II Thyromental Distance: 4-6 cm Respiratory: Lungs clear, Normal breath sounds, No respiratory distress Cardiovascular: Regular rate Neurological: Normal speech Mental/Cognitive Status: Alert/Oriented X3, Normal for patient Cognitive Status: Within normal limits Plan Anesthesia Type: Spinal, Fascia Iliaca Block Regional Block: Per Surgeon's request for Post Op pain control Consent for Procedure(s) Verified and Reviewed: Yes Code Status: Attempt Resuscitation ASA classification: 2-Mild systemic disease Is this case an emergency?: No
[2021-12-28] MEDS ORDERED: NS W/20 MEQ KCL 1,000 ML IV SCH (08:00)
[2021-12-28] MEDS ORDERED: LACTATED RINGERS 1,000 ML IV SCH (08:00)
[2021-12-28] MEDS ORDERED: PHENYLEPHRINE 10 MG/ML VIAL ONE (08:33)
[2021-12-28] MEDS ORDERED: CELECOXIB 100 MG CAPSULE PO SCH (09:00)
[2021-12-28] MEDS ORDERED: BUPIVACAINE 0.25% PF 30 ML VIAL SUBQ ONE ×3 (09:08)
[2021-12-28] MEDS ORDERED: VANCOMYCIN 1 GM VIAL MC ONE ×2 (09:08)
[2021-12-28] MEDS ORDERED: PROPOFOL ONE (09:18)
--- NOTE | 2021-12-28 10:42 | OPERATIVE REPORT ---
Operative Report - General Procedure Date: 12/28/21 Planned Procedure: left total hip arthroplasty Pre-Op Diagnosis: Osteoarthritis left hip Procedure Performed: Left total hip replacement using [employer]hew total hip system: #8 high offset anthology femoral component, 36 mm +0 Oxinium femoral head, 52 mm reflection 3 press-fit acetabular component, 0 degree acetabular polyethylene liner Post Op Diagnosis: Same as preoperative diagnosis - Procedure Note Primary Surgeon: Earle Daniels MD Secondary Surgeon: Vinicius Green Anesthesia Provider: Cathy Levin CRNA Anesthesia Technique: Regional block, Spinal Estimated Blood Loss (mL): 200 Indications: This is a 66-year-old woman with severe bilateral hip osteoarthritis. She has had a previous right total hip arthroplasty was performed at [facility] last summer and has had a very favorable outcome. She is still limited by left hip pain with regard to ambulation. She has nearly constant pain With weightbearing. She had limited and painful hip motion, flexion contracture to left hip. Her x-ray showed advanced loss of hip joint space on the left side, osteophytes and deformity of femoral head.She desires similar outcome with left hip as she has had with the right hip so that she can walk and do activities that she enjoys with her . Findings: There was complete loss of articular cartilage to both acetabulum and femoral head. There was deformity of the femoral head and osteophytes about the head and also about the acetabulum. Complications: None - Other Other Information/Narrative: After satisfactory spinal anesthesia had been achieved, the patient was placed in a lateral decubitus position with the left hip facing superiorly. The patien t was secured in the lateral decubitus position using a pegboard with 2 post securing the torso and 2 posts securing the pelvis. The left hip and left lower extremity were prepped and draped in a sterile manner in the usual fashion. A timeout procedure was performed by the entire operating room team and all were in agreement. A longitudinal incision was made about the lateral right hip beginning at the vastus lateralis ridge of the proximal femur and extending it proximally approximately 3 fingerbreadths above the trochanter. The subcutaneous tissue and fascia yasmeen were split in line with the incision. The anterior one third of the gluteus medius was incised at the myotendinous junction. The gluteus medius was retracted medially. The hip capsule was exposed and was split in a T-shaped fashion. Part of the anterior hip capsule was excised. The femoral head was dislocated with flexion, adduction and external rotation. An osteotomy was done to the femoral neck using a osteotomy guide. Retractors were placed behind the femoral neck to protect the soft tissues from the oscillating saw. The proximal femur was retracted. 2 acetabular retractors were placed one anteriorly directly against bone to reduce any soft tissue impingement to femoral nerve. The second retractor was placed more posteriorly directly against bone and preventing any impingement against sciatic nerve. The acetabulum was prepared with a large curette. Medialization of the acetabulum was performed with a small acetabular reamer and then widening was done up to a 52 mm reamer the final reamers were placed in approximately 20 degrees anteversion and 45 degrees of abduction. A trial acetabular component was inserted, 51 mm and this fit well. A permanent 52 mm R3 acetabular 3-hole component was then impacted in 40 degrees of abduction and approximately 20 degrees of anteversion. This had good fixation to push pull and rotation. A single 30 mm superior acetabular screw was inserted. The stability of the acetabular cup was very good. A trial acetabular liner was inserted into the cup. The femoral canal was opened with a box osteotome, starting reamer and then a short broach. Broaching was carried out to a #8. Calcar reaming was performed. Good fit and stability to the #8 stem was achieved. Trial reduction was performed. Hip motion was very good and the hip was stable to dislocation maneuvers. The trial components were removed. A permanent acetabular liner was impacted into the acetabular cup. The #8 Anthology femoral stem was impacted and fully seated. The femoral head was impacted on the femoral trunnion. There was good stability to push pull and rotation. A 36 mm +0 oxinium head was impacted on the trunnion. The hip was reduced, had good leg length tension and good stability with dislocation maneuvers. 3-minute lavage with dilute Betadine was performed. Vancomycin powder 2 g replaced about the hip joint prior to deep closure. The hip abductors were repaired at the myotendinous junction with #1 Vicryl. The fascia yasmeen was closed with #1 Vicryl. The subcutaneous tissue was closed with 2-0 Vicryl. The skin was closed with a 3-0 Monocryl subcuticular c losure and Dermabond. He tolerated the procedure well. A physician home health assistant was utilized during the procedure to provide retraction and protection of neurovascular structures as well as to facilitate dislocation and reduction of the hip joint.
[2021-12-28] MEDS ORDERED: SODIUM CHLORIDE 0.9% 10 ML VIAL IVP ONE (10:50)
[2021-12-28] MEDS ORDERED: LACTATED RINGERS 500 ML IV ONE (11:23)
[2021-12-28] MEDS: oxyCODONE 5 MG TABLET PO PRN ×2 (12:50→18:06)
[2021-12-28] MEDS: ACETAMINOPHEN 500 MG TABLET PO SCH ×3 (12:50→23:40)
[2021-12-28] MEDS: SODIUM CHLORIDE FLUSH 0.9% 10 ML SYRINGE IVP SCH ×3 (12:56→23:44)
[2021-12-28] MEDS: ethyl alcohoL 62% SWAB AMPULE NAS SCH ×2 (12:56→21:01)
[2021-12-28] MEDS: ASPIRIN EC 81 MG TABLET PO SCH ×2 (12:56→21:00)
--- NOTE | 2021-12-28 12:57 | CONSULTATION NOTE ---
Referring Provider Name of Referring Provider:: Dr. Chaudhary Consult Date: 12/28/21 Chief Complaint - Chief Complaint Chief Complaint: left hip pain History of Present Illness - Admitted From Admitted From:: medical floor - History Obtained From Records Reviewed: [facility] History obtained from: pt Exam Limitations: no - History of Present Illness HPI Comment/Other: This is a 66-years old female, with a past medical history significant only for hypertension, hyperlipidemia and diabetes II, who is s/p left hip total replacement on today. Patient report she take metformin for her diabetes, she take two Amlodipine and losartan of her three blood pressure medicines already in the morning. She reported she had right hip total replacement on April last year. She did very well for that procedure. Patient also report she still had a lot of pain on left hip especially when she tried to move. Otherwise she denies any other complaints. History - Past Medical History Cardiovascular: reports: Hypertension, High cholesterol Respiratory: reports: Asthma Endocrine/Autoimmune: reports: Type 2 diabetes GI: reports: Colon polyps : reports: None HEENT: reports: Chronic vision loss Psych: reports: Anxiety Musculoskeletal: reports: Osteoarthritis Derm: reports: Eczema MRSA Hx?: No - Past Surgical History General: reports: Colonoscopy Ortho: reports: Hip replacement - Family & Social History Living Situation: With spouse/s.o. Social History Notes: used to work in a [employer] town in [place] in [employer], lives w/ , moved to [facility] 2015 as daughter was here / with grand kids on [employer] base - Substance History Use: Uses substance without health or social issues: Alcohol (occasional on ho lidays, no tobacco) Meds/Allgy - Home Medications Home Medications: Ambulatory Orders Medication Instructions Recorded Confirmed Amlodipine Besylate [Norvasc] 10 mg PO DAILY 05/02/21 12/28/21 Calcium Carbonate [Tums (Calcium 3 tab PO QPM 05/02/21 12/28/21 Carbonate 500mg)] Cholecalciferol (Vitamin D3) 1,000 unit PO DAILY 05/02/21 12/28/21 [Vitamin D3] Cyanocobalamin (Vitamin B-12) 1,000 mcg PO BID 05/02/21 12/28/21 [Vitamin B-12] Ibuprofen [Motrin] 400 mg PO BID 05/02/21 12/28/21 Losartan Potassium [Cozaar] 100 mg PO DAILY 05/02/21 12/28/21 Simvastatin [Zocor] 10 mg PO QPM 05/02/21 12/28/21 hydroCHLOROthiazide [Hydrodiuril] 25 mg PO DAILY 05/02/21 12/28/21 metFORMIN [Glucophage] 1,000 mg PO BIDWM 05/02/21 12/28/21 Zinc Gluconate [Zinc] 50 mg PO DAILY 12/20/21 12/20/21 - Allergies Allergies/Adverse Reactions: Allergies Allergy/AdvReac Type Severity Reaction Status Date / Time adhesive tape Allergy Rash Verified 12/28/21 06:25 lisinopril Allergy angioedema Verified 12/28/21 06:25 sitagliptin [From Januvia] Allergy severe Verified 12/28/21 06:25 joint pain atorvastatin [From Lipitor] AdvReac muscle Verified 12/28/21 06:25 cramps Review of Systems - Constitutional Constitutional: denies: Fever, Chills - Eyes Eyes: denies: Pain - Cardiovascular Cariovascular: denies: Chest pain, Exertional dyspnea, Decr. exercise tolerance - Respiratory Respiratory: denies: Cough, SOB at rest, SOB with exertion - Gastrointestinal Gastrointestinal: denies: Abdominal pain, Diarrhea, Nausea, Vomiting - Musculoskeletal Musculoskeletal: reports: Other (left hip pain when she move. pt is s/p of left hip total replacement.) - Integumentary Integumentary: denies: Rash - Neurological Neurological: denies: Focal weakness, Headache, Seizures, Incoordination, Slurred speech Exam - Vital Signs Vital Signs: Vital Signs x48h Temp Pulse Resp BP Pulse Ox 12/28/21 12:53 36.4 C L 85 19 153/71 H 98 12/28/21 12:38 36.3 C L 80 18 117/71 99 12/28/21 12:23 36.3 C L 80 16 126/67 98 12/28/21 12:08 36.3 C L 70 17 132/62 H 99 12/28/21 11:50 36.3 C L 71 14 111/76 99 12/28/21 11:45 36.2 C L 68 12 115/66 99 12/28/21 11:40 76 9 L 119/62 100 12/28/21 11:35 36.1 C L 65 12 116/65 100 12/28/21 11:30 36.1 C L 62 9 L 108/55 L 100 12/28/21 11:25 36.1 C L 71 17 103/57 L 99 12/28/21 11:20 36.1 C L 76 16 110/64 100 12/28/21 07:19 36.6 C 82 18 148/93 H 100 - Physical Exam General Appearance: positive: Alert, Mild distress. negative: Lethargic Eyes Bilateral: positive: Normal inspection, No lid inflammation ENT: positive: ENT inspection nml. negative: Purulent nasal drainage Neck: positive: Nml inspection, Trachea midline. negative: Tracheal deviation Respiratory: positive: Chest non-tender, No respiratory distress. negative: Wheezes, Rales Cardiovascular: positive: Regular rate & rhythm. negative: Tachycardia, Bradycardia, Systolic murmur Peripheral Pulses: positive: 2+ Abdomen: positive: Non-tender, Nml bowel sounds, No distention. negative: Tenderness Back: positive: Nml inspection Skin: positive: Color nml, Warm, Dry. negative: Cyanosis Extremities: positive: Non-tender, Nml appearance, Other (intact neurovascular examination at distal left lower extremity) Neurologic/Psychiatric: positive: Oriented x3, Sensation nml, Mood/affect nml. negative: Weakness, Sensory loss, Facial droop, Slurred/abnml speech, Depressed mood/affect Conclusion/Plan - Problem List (1) Diabetes mellitus Conclusion/Plan: Patient has history of diabetes, she take metformin in the home, we will hold metformin, we will check A1c, we will start the sliding scale for insulin, we will do ACH S glucose check, We will continue hypoglycemia protocol. patient started with carb controlled diabetic diet. (2) Status post left hip replacement Conclusion/Plan: Patient had left total hip replacement on today, patient's DVT prophylaxis is per surgeon. Medical team was consulted by orthopedic surgeon for medical management. Continue pain control, we will have PT and OT evaluation and treatment for patient (3) Hypertension Conclusion/Plan: Patient's blood pressure is stable, patient reported she take HCTZ, amlodipine, losartan at home. Patient already take amlodipine Kenneth in the home. We will continue vital signs monitor, we will resume patient home blood pressure medicines (4) Hyperlipidemia Conclusion/Plan: Patient has a history of hyperlipidemia, we will resume patient's statin - Lab Results Lab results reviewed: Yes Fish Bones: 12/28/21 13:19 12/28/21 13:06
[2021-12-28 13:18] LABS: CALCIUM 9.4 mg/dL (8.5-10.3); CREATININE 0.7 mg/dL (0.4-1.0); POTASSIUM 3.6 mmol/L (3.5-5.0)
[2021-12-28 13:23] LABS: BASOPHILS # (AUTO) 0.1 10^3/uL (0.0-0.1); BASOPHILS % (AUTO) 0.2 %; EOSINOPHILS % (AUTO) 0.1 %; HCT - HEMATOCRIT 37.5 % (37.0-47.0); HGB - HEMOGLOBIN 12.5 g/dL (12.0-16.0); LYMPHOCYTES # (AUTO) 1.1 10^3/uL (1.5-3.5); LYMPHOCYTES % (AUTO) 5.5 %; MEAN CORPUSCULAR HGB CONC 33.3 g/dL (32.0-36.0); MEAN PLATELET VOLUME 8.8 fL (7.9-10.8); MONOCYTES # (AUTO) 0.7 10^3/uL (0.0-1.0); MONOCYTES % (AUTO) 3.2 %; NEUTROPHILS # (AUTO) 18.4 10^3/uL (1.5-6.6); NEUTROPHILS % (AUTO) 90.6 %; PLT - PLATELET COUNT 358 10^3/uL (130-450); RED BLOOD COUNT 4.31 10^6/uL (4.20-5.40); RED CELL DISTRIBUTION WIDTH 14.6 % (12.0-15.0); WHITE BLOOD COUNT 20.4 x10^3/uL (4.8-10.8)
[2021-12-28 13:26] LABS: SLIDE REVIEW? Indicated
[2021-12-28 13:52] LABS: RBC MORPHOLOGY (MULTIPLE) 2+ ANISOCYTOSIS (NORMAL)
--- NOTE | 2021-12-28 14:16 | ANESTHESIA POST OP EVALUATION ---
Anesthesia Post Eval - Post Anesthesia Eval Vitals: Last Vital Signs Temp 36.8 C 12/28/21 13:53 Pulse 85 12/28/21 13:53 Resp 18 12/28/21 13:53 BP 138/64 H 12/28/21 13:53 Pulse Ox 95 12/28/21 13:53 CV Function Including HR & BP: Stable Pain Control: Satisfactory Nausea & Vomiting: Negative Mental Status: Baseline Respiratory Status: Airway Patent Hydration Status: Satisfactory Anesthesia Complications: None
--- NOTE | 2021-12-28 14:18 | XRAY Report ---
PROCEDURE: Pelvis 1 View INDICATIONS: POST OP TECHNIQUE: Single AP view of the pelvis acquired. COMPARISON: Left hip radiographs 11/22/2021. FINDINGS: Bones: Postsurgical changes from left hip arthroplasty with hardware components in expected positions . Right hip arthroplasty appears stable. Soft tissues: Visualized bowel gas pattern is normal. No suspicious soft tissue calcifications.. De generative changes are seen in the subcutaneous tissues overlying the left hip. IMPRESSION: Status post left hip arthroplasty with expected postoperative findings. Reviewed by: Farzad Gotti MD on 12/28/2021 2:16 PM PDT Approved by: Farzad Gotti MD on 12/28/2021 2:16 PM PDT Station ID: [id number]
[2021-12-28 14:22] LABS: BILIRUBIN,URINE NEGATIVE (NEGATIVE); GLUCOSE, URINE (UA) NEGATIVE (NEGATIVE); KETONES,URINE (UA) TRACE mg/dL (NEGATIVE); LEUKOCYTE ESTERASE, URINE NEGATIVE (NEGATIVE); NITRITE,URINE NEGATIVE (NEGATIVE); OCCULT BLOOD,URINE MODERATE (NEGATIVE); PH,URINE 6.5 PH (5.0-7.5); PROTEIN,URINE NEGATIVE (NEGATIVE); UROBILINOGEN,URINE 0.2 (NORMAL) E.U./dL (NORMAL)
[2021-12-28 14:25] LABS: CLARITY,URINE CLEAR (CLEAR)
[2021-12-28 14:36] LABS: BACTERIA,URINE Rare /HPF (None Seen); EPITHELIAL CELLS,UR RARE Transitional /HPF (<= Few); RBC,URINE TNTC /HPF (0-5); SQUAMOUS EPITHELIAL CELL,UR FEW Squamous (<= Few); WBC,URINE 0-3 /HPF (0-5)
[2021-12-28] MEDS ORDERED: SODIUM CHLORIDE 0.9% 1,000 ML IV ONE (15:04)
[2021-12-28] MEDS: KETOROLAC 15 MG/ML VIAL IVP PRN ×2 (15:25→20:07)
[2021-12-28] MEDS ORDERED: SODIUM CHLORIDE 0.9% 500 ML IV ONE (15:28)
--- NOTE | 2021-12-28 15:37 | PHARMACY PROGRESS NOTE ---
- Best Possible Medication History Admit Date and Time: Processed by: Nursing Medication History completed: Yes Secondary Source(s): Insurance records As the person ultimately responsible for medication therapy, providers are able to order a medication from an existing home medication list in [facility] via the "Reconcile Routine" prior to Confirmation of that medication by learning support assistant. Such practice is discouraged except when the physician, in their clinical judgme nt, deems that a medical need exists for a medication without regard to previous use.
[2021-12-28] MEDS: HYDROmorphone 0.5 MG/0.5 ML SYRINGE IVP PRN ×2 (16:01→23:40)
[2021-12-28] MEDS ORDERED: INSULIN ASPART 300 UNIT/3 ML PEN SUBQ SCH ×2 (17:00→21:00)
[2021-12-28] MEDS: INSULIN ASPART 300 UNIT/3 ML PEN SUBQ SCH ×2 (17:16→21:02)
[2021-12-28] MEDS: NS W/20 MEQ KCL 1,000 ML IV SCH (17:23)
[2021-12-28 20:11] LABS: HCT - HEMATOCRIT 32.9 % (37.0-47.0)
[2021-12-28] MEDS ORDERED: CALCIUM CARBONATE CHEW 500 MG TABLET PO SCH (21:00)
[2021-12-28] MEDS ORDERED: PRAVASTATIN 10 MG TABLET PO SCH (21:00)
[2021-12-28] MEDS ORDERED: SODIUM CHLORIDE 0.9% 50 ML IV ONE (21:07)
[2021-12-29] MEDS: KETOROLAC 15 MG/ML VIAL IVP PRN ×2 (02:08→07:56)
[2021-12-29] MEDS: NS W/20 MEQ KCL 1,000 ML IV SCH (02:10)
[2021-12-29] MEDS: oxyCODONE 5 MG TABLET PO PRN ×2 (04:28→11:06)
[2021-12-29 04:57] LABS: BASOPHILS % (AUTO) 0.3 %; HCT - HEMATOCRIT 31.2 % (37.0-47.0); HGB - HEMOGLOBIN 10.4 g/dL (12.0-16.0); LYMPHOCYTES # (AUTO) 1.2 10^3/uL (1.5-3.5); LYMPHOCYTES % (AUTO) 11.3 %; MEAN CORPUSCULAR HEMOGLOBIN 28.8 pg (27.0-31.0); MEAN CORPUSCULAR HGB CONC 33.3 g/dL (32.0-36.0); MEAN CORPUSCULAR VOLUME 86.4 fL (81.0-99.0); MEAN PLATELET VOLUME 9.3 fL (7.9-10.8); MONOCYTES # (AUTO) 0.9 10^3/uL (0.0-1.0); MONOCYTES % (AUTO) 8.8 %; NEUTROPHILS # (AUTO) 8.2 10^3/uL (1.5-6.6); PLT - PLATELET COUNT 322 10^3/uL (130-450); RED BLOOD COUNT 3.61 10^6/uL (4.20-5.40); RED CELL DISTRIBUTION WIDTH 14.4 % (12.0-15.0); WHITE BLOOD COUNT 10.4 x10^3/uL (4.8-10.8)
[2021-12-29 05:07] LABS: CALCIUM 8.6 mg/dL (8.5-10.3); CREATININE 0.8 mg/dL (0.4-1.0); POTASSIUM 3.9 mmol/L (3.5-5.0)
[2021-12-29] MEDS: HYDROmorphone 0.5 MG/0.5 ML SYRINGE IVP PRN ×2 (06:12→10:00)
[2021-12-29] MEDS: INSULIN ASPART 300 UNIT/3 ML PEN SUBQ SCH (07:45)
--- NOTE | 2021-12-29 07:47 | PROVIDER PROGRESS NOTE ---
Subjective - General Procedure Date: 12/28/21 Post Op Days: 1 Procedure Performed: Left total hip arthroplasty - Review of Systems Wound/Incisions: positive: Drainage General: positive: No symptoms - Other Other Information/Narrative: Patient is postop day 1. Her pain appears to be controlled now. She did have episodes of pain off-and-on during the evening, a period of lightheadedness associated with fentanyl use and getting up out of bed. She was able to use the commode today without any symptoms of lightheadedness. She denies chest pain, shortness of breath, nausea or vomiting Objective - Patient Data Vital Signs: Vital Signs x48h Temp Pulse Resp BP Pulse Ox 12/29/21 04:22 36.8 C 80 16 136/63 H 98 Weight: Weight 12/27/21 12/28/21 12/29/21 23:59 23:59 23:59 Weight (kg) 99.5 kg Intake & Output: Intake and Output Totals x24h 12/27/21 12/28/21 12/29/21 23:59 23:59 23:59 Intake Total 3535.000 1631.652 Output Total 1525 1500 Balance 2010.000 131.652 - Lab Results Lab Results: 12/29/21 04:20 12/29/21 04:20 Other Lab Results: Lab Results x24hrs 12/29/21 12/29/21 12/28/21 Range/Units 04:20 04:20 19:58 WBC 10.4 (4.8-10.8) x10^3/uL RBC 3.61 L (4.20-5.40) 10^6/uL Hgb 10.4 L 11.0 L (12.0-16.0) g/dL Hct 31.2 L 32.9 L (37.0-47.0) % MCV 86.4 (81.0-99.0) fL MCH 28.8 (27.0-31.0) pg MCHC 33.3 (32.0-36.0) g/dL RDW 14.4 (12.0-15.0) % Plt Count 322 (130-450) 10^3/uL MPV 9.3 (7.9-10.8) fL Neut # (Auto) 8.2 H (1.5-6.6) 10^3/uL Lymph # (Auto) 1.2 L (1.5-3.5) 10^3/uL [place] # (Auto) 0.9 (0.0-1.0) 10^3/uL Eos # (Auto) 0.0 (0.0-0.7) 10^3/uL Baso # (Auto) 0.0 (0.0-0.1) 10^3/uL Absolute Nucleated RBC 0.00 x10^3/uL Nucleated RBC % 0.0 /100WBC Manual Slide Review RBC Morph Micro Appear (NORMAL) Sodium 137 (135-145) mmol/L Potassium 3.9 (3.5-5.0) mmol/L Chloride 104 (101-111) mmol/L Carbon Dioxide 24 (21-32) mmol/L Anion Gap 9.0 (6-13) BUN 18 (6-20) mg/dL Creatinine 0.8 (0.4-1.0) mg/dL Estimated GFR (MDRD) 72 L (>89) Glucose 140 H (70-100) mg/dL POC Whole Bld Glucose (70 - 100) mg/dL Calcium 8.6 (8.5-10.3) mg/dL Troponin I High Sens (2.3-14.8) ng/L Urine Color Urine Clarity (CLEAR) Urine pH (5.0-7.5) PH Ur Specific [place] (1.002-1.030) Urine Protein (NEGATIVE) mg/dL Urine Glucose (UA) (NEGATIVE) mg/dL Urine Ketones (NEGATIVE) mg/dL Urine Occult Blood (NEGATIVE) Urine Nitrite (NEGATIVE) Urine Bilirubin (NEGATIVE) Urine Urobilinogen (NORMAL) E.U./dL Ur Leukocyte Esterase (NEGATIVE) Urine RBC (0-5) /HPF Urine WBC (0-5) /HPF Ur Epithelial Cells (<= Few) /HPF Ur Squamous Epith Cells (<= Few) Urine Bacteria (None Seen) /HPF Urine Casts /LPF Urine Culture Comments Ref Lab Test Result 12/28/21 12/28/21 12/28/21 Range/Units 16:46 15:18 13:57 WBC (4.8-10.8) x10^3/uL RBC (4.20-5.40) 10^6/uL Hgb (12.0-16.0) g/dL Hct (37.0-47.0) % MCV (81.0-99.0) fL MCH (27.0-31.0) pg MCHC (32.0-36.0) g/dL RDW (12.0-15.0) % Plt Count (130-450) 10^3/uL MPV (7.9-10.8) fL Neut # (Auto) (1.5-6.6) 10^3/uL Lymph # (Auto) (1.5-3.5) 10^3/uL [place] # (Auto) (0.0-1.0) 10^3/uL Eos # (Auto) (0.0-0.7) 10^3/uL Baso # (Auto) (0.0-0.1) 10^3/uL Absolute Nucleated RBC x10^3/uL Nucleated RBC % /100WBC Manual Slide Review RBC Morph Micro Appear (NORMAL) Sodium (135-145) mmol/L Potassium (3.5-5.0) mmol/L Chloride (101-111) mmol/L Carbon Dioxide (21-32) mmol/L Anion Gap (6-13) BUN (6-20) mg/dL Creatinine (0.4-1.0) mg/dL Estimated GFR (MDRD) (>89) Glucose (70-100) mg/dL POC Whole Bld Glucose 223 H (70 - 100) mg/dL Calcium (8.5-10.3) mg/dL Troponin I High Sens 3.0 (2.3-14.8) ng/L Urine Color YELLOW Urine Clarity CLEAR (CLEAR) Urine pH 6.5 (5.0-7.5) PH Ur Specific [place] 1.020 (1.002-1.030) Urine Protein NEGATIVE (NEGATIVE) mg/dL Urine Glucose (UA) NEGATIVE (NEGATIVE) mg/dL Urine Ketones TRACE (NEGATIVE) mg/dL Urine Occult Blood MODERATE H (NEGATIVE) Urine Nitrite NEGATIVE (NEGATIVE) Urine Bilirubin NEGATIVE (NEGATIVE) Urine Urobilinogen 0.2 (NORMAL) (NORMAL) E.U./dL Ur Leukocyte Esterase NEGATIVE (NEGATIVE) Urine RBC TNTC H (0-5) /HPF Urine WBC 0-3 (0-5) /HPF Ur Epithelial Cells RARE Transitional (<= Few) /HPF Ur Squamous Epith Cells FEW Squamous (<= Few) Urine Bacteria Rare (None Seen) /HPF Urine Casts 0-2 Waxy Casts /LPF Urine Culture Comments NOT INDICATED Ref Lab Test Result 12/28/21 12/28/21 12/28/21 Range/Units 13:19 13:19 13:06 WBC 20.4 H (4.8-10.8) x10^3/uL RBC 4.31 (4.20-5.40) 10^6/uL Hgb 12.5 (12.0-16.0) g/dL Hct 37.5 (37.0-47.0) % MCV 87.0 (81.0-99.0) fL MCH 29.0 (27.0-31.0) pg MCHC 33.3 (32.0-36.0) g/dL RDW 14.6 (12.0-15.0) % Plt Count 358 (130-450) 10^3/uL MPV 8.8 (7.9-10.8) fL Neut # (Auto) 18.4 H (1.5-6.6) 10^3/uL Lymph # (Auto) 1.1 L (1.5-3.5) 10^3/uL [place] # (Auto) 0.7 (0.0-1.0) 10^3/uL Eos # (Auto) 0.0 (0.0-0.7) 10^3/uL Baso # (Auto) 0.1 (0.0-0.1) 10^3/uL Absolute Nucleated RBC 0.00 x10^3/uL Nucleated RBC % 0.0 /100WBC Manual Slide Review Indicated RBC Morph Micro Appear 2+ ANISOCYTOSIS (NORMAL) Sodium 136 (135-145) mmol/L Potassium 3.6 (3.5-5.0) mmol/L Chloride 100 L (101-111) mmol/L Carbon Dioxide 23 (21-32) mmol/L Anion Gap 13.0 (6-13) BUN 18 (6-20) mg/dL Creatinine 0.7 (0.4-1.0) mg/dL Estimated GFR (MDRD) 84 L (>89) Glucose 159 H (70-100) mg/dL POC Whole Bld Glucose (70 - 100) mg/dL Calcium 9.4 (8.5-10.3) mg/dL Troponin I High Sens (2.3-14.8) ng/L Urine Color Urine Clarity (CLEAR) Urine pH (5.0-7.5) PH Ur Specific [place] (1.002-1.030) Urine Protein (NEGATIVE) mg/dL Urine Glucose (UA) (NEGATIVE) mg/dL Urine Ketones (NEGATIVE) mg/dL Urine Occult Blood (NEGATIVE) Urine Nitrite (NEGATIVE) Urine Bilirubin (NEGATIVE) Urine Urobilinogen (NORMAL) E.U./dL Ur Leukocyte Esterase (NEGATIVE) Urine RBC (0-5) /HPF Urine WBC (0-5) /HPF Ur Epithelial Cells (<= Few) /HPF Ur Squamous Epith Cells (<= Few) Urine Bacteria (None Seen) /HPF Urine Casts /LPF Urine Culture Comments Ref Lab Test Result REPORT - Imaging Results Radiology Imaging: negative: EMP read indepedently (X-ray of left hip show satisfactory alignment of left total hip arthroplasty without fracture or dislocation.) - Current Medications Current Medications: Current Medications Generic Name Dose Route Start Last Admin Trade Name Danielq PRN Reason Stop Dose Admin Acetaminophen 1,000 mg 12/28/21 12:00 12/28/21 23:40 Acetaminophen 500 Mg Tablet PO 1,000 mg Q6HR KEILY Administration Alcohol 1 amp 12/28/21 09:00 12/28/21 21:01 Ethyl Alcohol 62% Swab Ampule HO 1 amp BID KEILY Administration Aspirin 81 mg 12/28/21 09:00 12/28/21 21:00 Aspirin Ec 81 Mg Tablet PO 81 mg BID KEILY Administration Calcium Carbonate/Glycine 1,500 mg 12/28/21 21:00 12/28/21 21:01 Calcium Carbonate Chew 500 Mg Tablet PO 1,500 mg QPM KEILY Administration Hydromorphone HCl 0.5 mg 12/28/21 13:51 12/29/21 06:12 Hydromorphone 0.5 Mg/0.5 Ml Syringe IVP 0.5 mg Q2H PRN Administration PAIN Potassium Chloride/Sodium Chloride 1,000 mls @ 83.3 mls/hr 12/28/21 17:19 12/29/21 02:10 Normal Saline 0.9% W/20 Meq Kcl IV 83.3 mls/hr .Q12H1M KEILY Administration Insulin Aspart 1 - 9 unit 12/28/21 17:15 12/29/21 07:45 Insulin Aspart 300 Unit/3 Ml Pen SUBQ Not Given 0800,1200,1700,2100 [facility] Protocol Ketorolac Tromethamine 15 mg 12/28/21 13:52 12/29/21 02:08 Ketorolac 15 Mg/Ml Vial IVP 01/02/22 13:51 15 mg Q6HR PRN Administration PAIN Oxycodone HCl 5 mg 12/28/21 07:31 12/29/21 04:28 Oxycodone 5 Mg Tablet PO 5 mg Q6HR PRN Administration PAIN Pravastatin Sodium 10 mg 12/28/21 21:00 12/28/21 21:00 Pravastatin 10 Mg Tablet PO 10 mg QPM KEILY Administration Sodium Chloride 10 ml 12/28/21 09:00 12/28/21 23:44 Sodium Chloride Flush 0.9% 10 Ml Syringe IVP Not Given 0100,0900,1700 [facility] - Physical Exam Wound/Incisions: positive: Dressing dry and intact, Drainage General Appearance: positive: No acute distress Neurologic/Psychiatric: positive: Oriented x3, Motor nml, Sensation nml, Mood/affect nml Comments/Other: Left leg shows no sign of hematoma about hip incision. There is some bloody drainage into her dressing, mild to moderate. Neurovascular is intact left leg. Impression/Plan - Problem List Problem List: Status post left total hip arthroplasty She should be safe for discharge to home today pending physical therapy. She needs to keep good control of her diabetes in the perioperative period with blood sugars around 180 as ideal or less. Her postop instructions and postop pain medications have been given and discussed prior to surgery and reemphasized. She is attended joint camp and has a joint camp book. She will continue with aspirin 81 mg twice daily for deep venous thrombosis prophylaxis. She has a return appointment to our office on Sunday. She can ambulate with walker, weightbearing as tolerated left leg. She may shower as long as the dressing is dry and intact.Discussed with hospitalist as well.
[2021-12-29] MEDS: SODIUM CHLORIDE FLUSH 0.9% 10 ML SYRINGE IVP SCH (07:56)
[2021-12-29] MEDS: ethyl alcohoL 62% SWAB AMPULE NAS SCH (07:56)
[2021-12-29] MEDS: ASPIRIN EC 81 MG TABLET PO SCH (07:56)
[2021-12-29] MEDS: ACETAMINOPHEN 500 MG TABLET PO SCH (07:56)
[2021-12-29] MEDS ORDERED: CHOLECALCIFEROL 25 MCG TABLET PO SCH (09:00)
[2021-12-29 12:07] VITALS: BP 130/82
== END 2021-12-29 12:30 | disposition home or self-care (01) ==
LOC: SDS 06:57 → MS2 12:03 → SDS 12-29 12:30
PROVIDERS: ATTEND Orthopaedic Surgery
DX: M16.12 Unilateral primary osteoarthritis, left hip (principal); Z20.822 Contact with and (suspected) exposure to COVID-19; I10 Essential (primary) hypertension; E78.5 Hyperlipidemia, unspecified; E11.9 Type 2 diabetes mellitus without complications; Z79.84 Long term (current) use of oral hypoglycemic drugs; I95.9 Hypotension, unspecified; R42 Dizziness and giddiness
CPT/HCPCS: 27130; 36415; 72170; 80048; 81001; 81599; 84484; 85014; 85018; 85025; 93005; 97161; 97165; 97530; A9270; C1776; J0690; J1170; J3370; J7040; J7120; 83036; 87086

== ENCOUNTER 2022-02-02 08:04 | Outpatient (CLI) | payer OTHER ==
--- NOTE | 2022-02-02 16:51 | XRAY Report ---
PROCEDURE: Hip 2 View LT INDICATIONS: HIP ARTHROPLASTY TECHNIQUE: 2 views of the hip were acquired. COMPARISON: 12/28/2021 FINDINGS: Bones: Patient is status post bilateral total hip arthroplasty. Left hip alignment is anatomic. No fr acture or dislocation. No gross hardware loosening or failure. No suspicious bony lesions. The visua lized pelvic ring appears intact. Soft tissues: No suspicious soft tissue calcifications or masses. IMPRESSION: Prior left hip arthroplasty with anatomic alignment. No fracture or dislocation. No gross hardware co mplication. Reviewed by: Bran Panchal MD on 02/02/2022 4:50 PM PDT Approved by: Bran Panchal MD on 02/02/2022 4:50 PM PDT Station ID: [id number]
== END 2022-02-02 23:59 | disposition home or self-care (01) ==
LOC: DI.WOS 08:04
PROVIDERS: ATTEND Orthopaedic Surgery
DX: Z96.643 Presence of artificial hip joint, bilateral (principal)

== ENCOUNTER 2022-03-20 12:30 | Outpatient (CLI) | payer OTHER ==
--- NOTE | 2022-03-30 14:50 | Mammography Report ---
BILATERAL DIGITAL SCREENING MAMMOGRAM 3D/2D: 03/20/2022 CLINICAL: Routine screening. No prior exams were available for comparison. The tissue of both breasts is predominantly fatty. No significant masses, calcifications, or other findings are seen in either breast. IMPRESSION: NEGATIVE There is no mammographic evidence of malignancy. A 1 year screening mammogram is recommended. Based on the Tyrer Cuzick model (a risk assessment model) the patients lifetime risk is 4.1% and her 10 year risk is 1.9%. According to the ACR, ACS, and NCCN guidelines, an annual breast MRI exam bassem g with mammogram is recommended if the patients lifetime risk is 20% or greater. This exam was interpreted at Station ID: [id number]. NOTE: For mammograms, a report in lay terms will be sent to the patient. Approximately 15% of breast malignancies will not be visualized mammographically. In the management of a palpable breast mass, a negative mammogram must not discourage biopsy of a clinically suspicious lesion. Electronically Signed By: Abilio allison/bladimir:03/30/2022 07:48:09 ACR BI-RADS Category 1: Negative 3341F PARENCHYMAL PATTERN: (F) - The breast(s) demonstrate(s) diffuse fatty replacement. BI-RADS CATEGORY: (1) - 1 RECOMMENDATION: (ANNUAL) - Recommend routine annual screening mammography. [id number] 1 year screening LATERALITY: (B)
== END 2022-03-20 12:31 | disposition home or self-care (01) ==
LOC: DI.N 12:30
PROVIDERS: ATTEND Physician Assistant
DX: Z12.31 Encounter for screening mammogram for malignant neoplasm of breast (principal)

== ENCOUNTER 2022-06-27 08:59 | Outpatient (CLI) | payer OTHER ==
[2022-06-27 12:48] LABS: ESTIMATED AVERAGE GLUCOSE 128 mg/dL (70-100); HEMOGLOBIN A1c% 6.1 % (4.27-6.07)
[2022-06-27 12:51] LABS: CREATININE,URINE 24.8 mg/dL
[2022-06-27 12:52] LABS: MICROALBUMIN,URINE < 0.2 mg/dL (0-300.0)
== END 2022-06-27 09:00 | disposition home or self-care (01) ==
LOC: LAB.N 08:59
PROVIDERS: ATTEND Physician Assistant
DX: E11.9 Type 2 diabetes mellitus without complications (principal)
CPT/HCPCS: 36415; 82043; 82570; 83036

== ENCOUNTER 2022-11-16 08:14 | Outpatient (CLI) | payer MEDICARE, OTHER ==
[2022-11-16 12:02] LABS: BASOPHILS # (AUTO) 0.1 10^3/uL (0.0-0.1); EOSINOPHILS # (AUTO) 0.3 10^3/uL (0.0-0.7); EOSINOPHILS % (AUTO) 4.5 %; HCT - HEMATOCRIT 42.4 % (37.0-47.0); HGB - HEMOGLOBIN 13.6 g/dL (12.0-16.0); LYMPHOCYTES # (AUTO) 2.1 10^3/uL (1.5-3.5); LYMPHOCYTES % (AUTO) 30.5 %; MEAN CORPUSCULAR HEMOGLOBIN 29.1 pg (27.0-31.0); MEAN CORPUSCULAR HGB CONC 32.1 g/dL (32.0-36.0); MEAN CORPUSCULAR VOLUME 90.6 fL (81.0-99.0); MEAN PLATELET VOLUME 9.5 fL (7.9-10.8); MONOCYTES # (AUTO) 0.5 10^3/uL (0.0-1.0); MONOCYTES % (AUTO) 6.6 %; NEUTROPHILS # (AUTO) 3.9 10^3/uL (1.5-6.6); NEUTROPHILS % (AUTO) 57.3 %; PLT - PLATELET COUNT 352 10^3/uL (130-450); RED BLOOD COUNT 4.68 10^6/uL (4.20-5.40); RED CELL DISTRIBUTION WIDTH 13.8 % (12.0-15.0); WHITE BLOOD COUNT 6.9 x10^3/uL (4.8-10.8)
[2022-11-16 12:48] LABS: ALBUMIN 4.3 g/dL (3.2-5.5); ALBUMIN/GLOBULIN RATIO 1.4 (1.0-2.2); ALKALINE PHOSPHATASE 78 IU/L (42-121); ALT ALANINE AMINOTRANSFERASE 16 IU/L (10-60); AST ASPARTATE AMINOTRANSFERASE 18 IU/L (10-42); BILIRUBIN,TOTAL 0.5 mg/dL (0.2-1.0); BUN - BLOOD UREA NITROGEN 17 mg/dL (6-20); CALCIUM 9.9 mg/dL (8.5-10.3); CARBON DIOXIDE - CO2 29 mmol/L (21-32); CHLORIDE 104 mmol/L (101-111); CHOL/HDL RATIO 2.9 (<4.4); CHOLESTEROL 184 mg/dL; CREATININE 0.8 mg/dL (0.4-1.0); GFR - MDRD 72 (>89); GLUCOSE 111 mg/dL (70-100); HDL CHOLESTEROL 64 mg/dL; LDL CHOLESTEROL,CALCULATED 104 mg/dL; LDL/HDL RATIO 1.6 (<4.4); POTASSIUM 4.5 mmol/L (3.5-5.0); SODIUM 141 mmol/L (135-145); TOTAL PROTEIN 7.4 g/dL (6.7-8.2); TRIGLYCERIDES 78 mg/dL; VLDL CHOLESTEROL 16 mg/dL
[2022-11-16 12:54] LABS: THYROID STIMULATING HORMONE 2.34 uIU/mL (0.34-5.60)
[2022-11-16 13:23] LABS: ESTIMATED AVERAGE GLUCOSE 128 mg/dL (70-100); HEMOGLOBIN A1c% 6.1 % (4.27-6.07)
== END 2022-11-16 08:15 | disposition home or self-care (01) ==
LOC: LAB.N 08:14
PROVIDERS: ATTEND Physician Assistant
DX: I10 Essential (primary) hypertension (principal); E78.2 Mixed hyperlipidemia; E11.9 Type 2 diabetes mellitus without complications
CPT/HCPCS: 36415; 80053; 80061; 83036; 83721; 84443; 85025

== ENCOUNTER 2023-02-13 07:22 | Day surgery (SDC) | payer OTHER, MEDICARE ==
[2023-02-13] MEDS ORDERED: LACTATED RINGERS 1,000 ML IV ONE ×2 (07:23→10:52)
[2023-02-13] MEDS ORDERED: PROPOFOL 500 MG/50 ML 500 MG/50 ML VIAL ONE (09:39)
--- NOTE | 2023-02-13 09:53 | ANESTHESIA ---
Pre-Anesthesia VS, & Labs - Diagnosis HX OF POLYPS - Procedure colonoscopy Vital Signs: Temp Pulse Resp BP Pulse Ox O2 Flow Rate 36 C L 77 16 176/79 H 99 02/13/23 07:28 02/13/23 07:28 02/13/23 07:28 02/13/23 07:28 02/13/23 07:28 Height: 5 ft 7 in Weight (kg): 89 kg Body Mass Index: 30.7 BMI Classification: Obese - NPO >8 hours - Is Patient ?: No - Lab Results Current Lab Results: Laboratory Tests 02/13/23 07:40: POC Whole Bld Glucose 97 Home Medications and Allergies Amlodipine Besylate [Norvasc] 10 mg PO DAILY 05/02/21 Calcium Carbonate [Tums (Calcium Carbonate 500mg)] 3 tab PO QPM 05/02/21 Cholecalciferol (Vitamin D3) [Vitamin D3] 1,000 unit PO DAILY 05/02/21 Cyanocobalamin (Vitamin B-12) [Vitamin B-12] 1,000 mcg PO BID 05/02/21 Ibuprofen [Motrin] 400 mg PO BID 05/02/21 Losartan Potassium [Cozaar] 100 mg PO DAILY 05/02/21 Simvastatin [Zocor] 10 mg PO QPM 05/02/21 hydroCHLOROthiazide [Hydrodiuril] 25 mg PO DAILY 05/02/21 metFORMIN [Glucophage] 1,000 mg PO BIDWM 05/02/21 Zinc Gluconate [Zinc] 50 mg PO DAILY 12/20/21 Allergies/Adverse Reactions: Allergies Allergy/AdvReac Type Severity Reaction Status Date / Time adhesive tape Allergy Rash Verified 12/28/21 06:25 lisinopril Allergy angioedema Verified 12/28/21 06:25 sitagliptin [From Januvia] Allergy severe Verified 12/28/21 06:25 joint pain atorvastatin [From Lipitor] AdvReac muscle Verified 12/28/21 06:25 cramps Anes History & Medical History - Anesthetic History Anesthesia Complications: reports: No previous complications Family history of Anesthesia Complications: Denies Family history of Malignant Hyperthermia: Denies - Medical History Cardiovascular: reports: Hypertension, High cholesterol Pulmonary: reports: Asthma Gastrointestinal: reports: Colon polyps Urinary: reports: None Musculoskeletal: reports: Osteoarthritis Endocrine/Autoimmune: reports: Type 2 diabetes Skin: reports: Eczema - Surgical History General: reports: Colonoscopy Orthopedic: reports: Hip replacement Exam General: Alert, Oriented x3, Cooperative Dental: WNL Mouth Openin Fingerbreadth Neck Mobility: Normal Mallampati classification: II Thyromental Distance: less than 4 cm Respiratory: Lungs clear Cardiovascular: Regular rate Plan Anesthesia Type: General, Total IV Consent for Procedure(s) Verified and Reviewed: Yes Code Status: Attempt Resuscitation ASA classification: 2-Mild systemic disease Is this case an emergency?: No
[2023-02-13] MEDS ORDERED: PROPOFOL 200 MG/20 ML VIAL IVP ONE ×2 (10:21→10:39)
[2023-02-13] MEDS ORDERED: ePHEDrine 50 MG/ML VIAL IVP ONE (10:24)
[2023-02-13 11:20] VITALS: BP 135/72
--- NOTE | 2023-02-13 16:40 | ANESTHESIA POST OP EVALUATION ---
Anesthesia Post Eval - Post Anesthesia Eval Vitals: Last Vital Signs Temp 36 C L 02/13/23 11:18 Pulse 72 02/13/23 11:18 Resp 16 02/13/23 11:18 BP 135/72 H 02/13/23 11:18 Pulse Ox 98 02/13/23 11:18 O2 Flow Rate CV Function Including HR & BP: Stable Pain Control: Satisfactory Nausea & Vomiting: Negative Mental Status: Baseline Respiratory Status: Airway Patent Hydration Status: Satisfactory Anesthesia Complications: None
== END 2023-02-13 07:23 | disposition home or self-care (01) ==
LOC: SDS 07:22
PROVIDERS: ATTEND Surgery
PROC: 3E0H8KZ Introduction of Other Diagnostic Substance into Lower GI, Via Natural or Artificial Opening Endoscopic (ICD-10-PCS; 2023-02-13)
PROC: 0DBK8ZZ Excision of Ascending Colon, Via Natural or Artificial Opening Endoscopic (ICD-10-PCS; principal; 2023-02-13 08:30)
DX: D12.2 Benign neoplasm of ascending colon (principal); R19.5 Other fecal abnormalities; K57.30 Diverticulosis of large intestine without perforation or abscess without bleeding; Z80.0 Family history of malignant neoplasm of digestive organs; E11.9 Type 2 diabetes mellitus without complications; Z79.84 Long term (current) use of oral hypoglycemic drugs; I10 Essential (primary) hypertension; E66.9 Obesity, unspecified; Z68.30 Body mass index [BMI] 30.0-30.9, adult
CPT/HCPCS: 45381; 45385; J7120

== ENCOUNTER 2023-05-16 07:56 | Outpatient (CLI) | payer OTHER, MEDICARE ==
--- NOTE | 2023-05-16 12:11 | DEXA Report ---
PROCEDURE: Dexa Spine and/or Hip INDICATIONS: POST MENOPAUSAL TECHNIQUE: Dual energy x-ray absorptiometry (DXA) was performed on a [employer] Live System. Regions measur ed are the AP Spine, femoral neck, and if needed forearm. COMPARISON: FINDINGS: Lumbar Spine: Bone Mineral Density 1.96 g/cm/cm,T score 6. L2-L4 was used. Left Forearm: Bone Mineral Density 0.95 g/cm/cm, T score 0.8. (T score greater or equal to -1.0: NORMAL) (T score from -1.1 to -2.4: OSTEOPENIA) (T score less than or equal to -2.5 to: OSTEOPOROSIS) Impression: By WHO criteria, this patient has normal bone density. Forearm used due to bilateral hip replacements . Patients with diagnosis of osteoporosis or osteopenia should have regular bone mineral density assess ment. For those eligible for Medicare, routine testing is allowed once every 2 years. Testing frequ ency can be increased for patients who have rapidly progressing disease or for those who are receivin g medical therapy to restore bone mass. Reviewed by: William Sanchez MD on 05/16/2023 12:09 PM PDT Approved by: William Sanchez MD on 05/16/2023 12:09 PM PDT Station ID: [id number]
== END 2023-05-16 07:57 | disposition home or self-care (01) ==
LOC: DI 07:56
PROVIDERS: ATTEND Physician Assistant
DX: Z78.0 Asymptomatic menopausal state (principal); Z96.643 Presence of artificial hip joint, bilateral

== ENCOUNTER 2023-06-27 13:45 | Outpatient (CLI) | payer OTHER, MEDICARE ==
--- NOTE | 2023-06-28 13:40 | Mammography Report ---
BILATERAL DIGITAL SCREENING MAMMOGRAM 3D/2D: 06/27/2023 CLINICAL: Routine screening. Comparison is made to exam dated: 03/20/2022 mammogram - [facility]. Both breasts are almost entirely fatty (category a/<25% glandular tissue). There is a benign focal asymmetry in the left breast. No significant masses, calcifications, or other findings are seen in either breast. There has been no significant interval change. IMPRESSION: BENIGN There is no mammographic evidence of malignancy. A 1 year screening mammogram is recommended. Based on the Tyrer Cuzick model (a risk assessment model) the patients lifetime risk is 3.9% and her 10 year risk is 1.9%. According to the ACR, ACS, and NCCN guidelines, an annual breast MRI exam bassem g with mammogram is recommended if the patients lifetime risk is 20% or greater. This exam was interpreted at Station ID: [id number]. NOTE: For mammograms, a report in lay terms will be sent to the patient. Approximately 15% of breast malignancies will not be visualized mammographically. In the management of a palpable breast mass, a negative mammogram must not discourage biopsy of a clinically suspicious lesion. Electronically Signed By: Abilio Regalado M.D. aty/:06/27/2023 17:57:36 letter sent: No_Letter ACR BI-RADS Category 2: Benign Finding(s) 3342F PARENCHYMAL PATTERN: (F) - The breast(s) demonstrate(s) diffuse fatty replacement. BI-RADS CATEGORY: (2) - 2 Mammogram [id number] 1 year screening LATERALITY: (B)
== END 2023-06-27 13:46 | disposition home or self-care (01) ==
LOC: DI 13:45
DX: Z12.31 Encounter for screening mammogram for malignant neoplasm of breast (principal)

== ENCOUNTER 2024-02-25 14:08 | Outpatient (CLI) | payer MEDICARE | END 2024-02-25 23:59 | disposition short-term general hospital (02) | LOC: EMS 14:08 | DX: T84.021A Dislocation of internal left hip prosthesis, initial encounter (principal) | CPT/HCPCS: A0425; A0427 ==

== ENCOUNTER 2024-03-03 13:54 | Outpatient (CLI) | payer MEDICARE ==
--- NOTE | 2024-03-03 20:28 | XRAY Report ---
PROCEDURE: Hip w/Pelvis 2-3V LT INDICATIONS: HX OF HIP REPLACEMENT, BILATERAL TECHNIQUE: 3 views of the hip were acquired. COMPARISON: X-ray hip 04/25/2022 FINDINGS: Bones: No fractures or dislocations. No suspicious bony lesions. Bilateral hip arthroplasties. No visualized acute fracture or dislocation. However, occult injury cannot be excluded. Recommend short interval imaging follow-up in 7-10 days as clinically indicated for additional evaluation. Degenerat ariana changes are present within the lower lumbar spine. Soft tissues: No suspicious soft tissue calcifications or masses. Calcifications are present overl angelito the pelvis possibly related to uterine fibroids. IMPRESSION: Bilateral hip arthroplasties and lower lumbar degenerative change. Reviewed by: Nusrat Gregg MD on 03/03/2024 8:26 PM PDT Approved by: Nusrat Gregg MD on 03/03/2024 8:26 PM PDT Station ID: [id number]
== END 2024-03-03 13:55 | disposition home or self-care (01) ==
LOC: DI 13:54
PROVIDERS: ATTEND Physician Assistant Surgical
DX: Z96.643 Presence of artificial hip joint, bilateral (principal); M47.816 Spondylosis without myelopathy or radiculopathy, lumbar region

== ENCOUNTER 2024-04-03 08:04 | Outpatient (CLI) | payer MEDICARE ==
[2024-04-03 08:30] LABS: ALBUMIN 4.6 g/dL (3.2-5.5); ALBUMIN/GLOBULIN RATIO 1.8 (1.0-2.2); ALKALINE PHOSPHATASE 81 IU/L (42-121); ALT ALANINE AMINOTRANSFERASE 13 IU/L (10-60); AST ASPARTATE AMINOTRANSFERASE 16 IU/L (10-42); BILIRUBIN,TOTAL 0.5 mg/dL (0.2-1.0); BUN - BLOOD UREA NITROGEN 16 mg/dL (6-20); CALCIUM 9.9 mg/dL (8.5-10.3); CARBON DIOXIDE - CO2 29 mmol/L (21-32); CHLORIDE 101 mmol/L (101-111); CHOLESTEROL 168 mg/dL; CREATININE 0.9 mg/dL (0.6-1.3); GFR - MDRD 63 (>89); GLUCOSE 105 mg/dL (74-104); HDL CHOLESTEROL 56 mg/dL; LDL CHOLESTEROL,CALCULATED 97 mg/dL; LDL/HDL RATIO 1.7 (<4.4); POTASSIUM 4.1 mmol/L (3.5-4.5); SODIUM 136 mmol/L (135-145); TOTAL PROTEIN 7.1 g/dL (6.4-8.9); TRIGLYCERIDES 77 mg/dL; VLDL CHOLESTEROL 15 mg/dL
[2024-04-03 10:26] LABS: ESTIMATED AVERAGE GLUCOSE 126 mg/dL (70-100)
== END 2024-04-03 08:05 | disposition home or self-care (01) ==
LOC: LAB 08:04
PROVIDERS: ATTEND Physician Assistant
DX: E11.9 Type 2 diabetes mellitus without complications (principal); E78.2 Mixed hyperlipidemia
CPT/HCPCS: 36415; 80053; 80061; 83036; 83721